=== PATIENT | male | born 1965 | race American Indian/Alaskan Native ===

== ENCOUNTER 2021-08-18 22:27 | Inpatient (IN) | payer SELFPAY ==
--- NOTE | 2021-08-19 11:22 | Emergency Department Report ---
Blank Doc - Documentation Documentation: 55-year-old male presents to the ED complaining, increased blood glucose and c occyx painx2 week . Patient states that he is homeless and unable to cook his any his meal. Patient states that has been evaluated at [place] over the last several weeks several times for coccyx pain and was told that nothing was wrong. Patient has obvious edema noted to the coccyx area with a possible pilonidal cyst. Patient has complaint of fever and chills. Patient is alert and oriented x3. Patient blood glucose 329. This initial assessment/diagnostic orders/clinical plan/treatment(s) is/are subject to change based on patients health status, clinical progression and re- assessment by fellow clinical providers in the ED. Further treatment and workup at subsequent clinical providers discretion. Patient/guardian urged not to elope from the ED as their condition may be serious if not clinically assessed and managed.
--- NOTE | 2021-08-19 12:01 | Emergency Department Report ---
- General Chief complaint: Pain General Stated complaint: TAILBONE PAIN Time Seen by Provider: 08/19/21 11:34 Source: patient Mode of arrival: Ambulatory Limitations: No Limitations - History of Present Illness Initial comments: Patient is a 55-year-old male with history of diabetes controlled with metformin presenting with complaint of pain and swelling along his gluteal cleft for the past few weeks. States he fell a few weeks ago landing on his bottom. He denies fever or chills. - Related Data Home Medications Medication Instructions Recorded Confirmed Last Taken Janumet 50-1,000 mg 1,000 mg PO DAILY 11/02/14 11/02/14 Unknown Lisinopril 12.5 mg PO DAILY 11/02/14 11/02/14 11/01/14 Simvastatin 20 mg PO DAILY 11/02/14 11/02/14 11/01/14 metFORMIN 500 mg PO BID 11/02/14 11/02/14 11/01/14 Allergies Allergy/AdvReac Type Severity Reaction Status Date / Time morphine Allergy Itching Verified 08/18/21 23:05 Abscess Boil HPI - HPI Chief Complaint: Pain General Stated Complaint: TAILBONE PAIN Time Seen by Provider: 08/19/21 11:34 Home Medications: Home Medications Medication Instructions Recorded Confirmed Last Taken Janumet 50-1,000 mg 1,000 mg PO DAILY 11/02/14 11/02/14 Unknown Lisinopril 12.5 mg PO DAILY 11/02/14 11/02/14 11/01/14 Simvastatin 20 mg PO DAILY 11/02/14 11/02/14 11/01/14 metFORMIN 500 mg PO BID 11/02/14 11/02/14 11/01/14 Allergies/Adverse Reactions: Allergies Allergy/AdvReac Type Severity Reaction Status Date / Time morphine Allergy Itching Verified 08/18/21 23:05 ED Review of Systems ROS: Stated complaint: TAILBONE PAIN Other details as noted in HPI Comment: All other systems reviewed and negative Constitutional: denies: chills, fever Respiratory: denies: cough, shortness of breath, wheezing Cardiovascular: denies: chest pain, palpitations Gastrointestinal: denies: abdominal pain, nausea, diarrhea Musculoskeletal: denies: back pain, joint swelling, arthralgia Skin: lesions (See HPI) Neurological: denies: headache, weakness, paresthesias Psychiatric: denies: anxiety, depression ED Past Medical Hx - Past Medical History Previous Medical History?: Yes Hx Hypertension: Yes Hx Diabetes: Yes Hx Psychiatric Treatment: No Additional medical history: HIGH CHOLESTEROL - Surgical History Past Surgical History?: No - Social History Smoking Status: Never Smoker Substance Use Type: None - Medications Home Medications: Home Medications Medication Instructions Recorded Confirmed Last Taken Type Janumet 50-1,000 mg 1,000 mg PO DAILY 11/02/14 11/02/14 Unknown History Lisinopril 12.5 mg PO DAILY 11/02/14 11/02/14 11/01/14 History Simvastatin 20 mg PO DAILY 11/02/14 11/02/14 11/01/14 History metFORMIN 500 mg PO BID 11/02/14 11/02/14 11/01/14 History ED Physical Exam - General Limitations: No Limitations General appearance: alert, in no apparent distress - Head Head exam: Present: atraumatic, normocephalic - Respiratory Respiratory exam: Present: normal lung sounds bilaterally. Absent: respiratory distress - Cardiovascular Cardiovascular Exam: Present: regular rate, normal rhythm, normal heart sounds - GI/Abdominal GI/Abdominal exam: Present: soft. Absent: distended, tenderness - Neurological Exam Neurological exam: Present: alert, oriented X3 - Psychiatric Psychiatric exam: Present: normal affect, normal mood - Skin Skin exam: Present: warm, dry, intact, other (Induration, swelling and tender ness to both upper gluteal clefts. Swelling and induration more significant on the left side.) ED Course Vital Signs 08/18/21 23:01 Temperature 99.0 F Pulse Rate 75 Respiratory 18 Rate Blood Pressure 124/55 [Left] O2 Sat by Pulse 98 Oximetry ED Medical Decision Making - Lab Data Result diagrams: 08/19/21 11:23 08/19/21 11:23 - Medical Decision Making Patient presenting with complaint of swelling and pain to the gluteal cleft for the past few weeks. He is a diabetic controlled on metformin. Physical exam findings consistent with likely gluteal abscess for cellulitis. Leukocytosis present at 22.7. CT abdomen pelvis shows findings consistent with perianal/perirectal cellulitis with possible perianal abscess. Discussed case with Dr. Hernandez who will consult. Patient started on IV clindamycin. Will admit to hospitalist. Critical care attestation.: If time is entered above; I have spent that time in minutes in the direct care of this critically ill patient, excluding procedure time. ED Disposition Clinical Impression: Perirectal cellulitis, Perianal cellulitis, Perianal abscess Disposition: 09 ADMITTED INPATIENT Is pt being admited?: Yes Condition: Stable
[2021-08-19] MEDS ORDERED: KETOROLAC 30 MG/1 ML INJ IV ONE (12:02)
[2021-08-19 12:17] LABS: Hematocrit 35.2 % (35.5-45.6); Hemoglobin 11.5 gm/dl (11.8-15.2); Mean Corpuscular HGB Conc 33 % (32-34); Mean Corpuscular Volume 74 fl (84-94); Platelet Count 247 K/mm3 (140-440); Red Blood Count 4.76 M/mm3 (3.65-5.03); Red Cell Distribution Width 15.9 % (13.2-15.2)
[2021-08-19 12:33] LABS: Alanine Aminotransferase 30 units/L (7-56); Albumin 4.4 g/dL (3.9-5); BUN/Creatinine Ratio 13; Blood Urea Nitrogen 14 mg/dL (9-20); Calcium 9.5 mg/dL (8.4-10.2); Hemolysis Index 13
--- NOTE | 2021-08-19 15:29 | Cat Scan Report ---
CT PELVIS WITH CONTRAST INDICATION / CLINICAL INFORMATION: Pilonidal cyst. TECHNIQUE: Axial CT images were obtained through the pelvis after 100 mL Omnipaque [address] scans at this location are performed using CT dose reduction for ALARA by means of automated ex posure control. COMPARISON: None available. FINDINGS: BOWEL: No abnormality of the visualized distal small small bowel, colon, and proximal rectum. There i s moderate distal rectal/perianal inflammation with possible left perianal fistula and abscess measur ing 1.5 1.2 x 2.0 cm as seen on axial series 3 image 107 induration and inflammation extends superior ly to the tip of the coccyx and mid gluteal cleft. This area of induration could represent developing phlegmon measuring about 3.5 x 2.0 x 3.0 cm best seen on axial series 3 image 97. APPENDIX: Not seen PERITONEUM: No free fluid. No free air. No fluid collection. LYMPH NODES: No significant adenopathy. ARTERIES: No significant abnormality. VEINS: No significant abnormality. URINARY BLADDER: No significant abnormality. REPRODUCTIVE ORGANS: No significant abnormality. ADDITIONAL FINDINGS: None. 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 IMPRESSION: 1. Moderate perirectal/perianal inflammation with possible left perianal fistula and abscess. Possibl e developing phlegmon just distal to the tip of the coccyx. 2. Patchy osteosclerosis and bilateral femoral head AVN which can be seen in the setting of sickle ce ll disease or other metabolic bone disease. Signer Name: Anant Macedo MD Signed: 08/19/2021 3:24 PM Workstation Name: [id number]
--- NOTE | 2021-08-19 17:28 | Consultation ---
History of Present Illness Consult date: 08/19/21 - History of present illness History of present illness: General surgery called to see 55-year-old diabetic male presented to the emergency room with a 2-week history of worsening coccyx pain. Patient says that he went to an outside hospital several times with no treatment. Patient says that he fell about 2 weeks ago and started having the pain. Patient had a CT scan today that showed an abscess collection with phlegmon in the perianal/gluteal area just inferior to the coccyx. Patient says that he has never had this before but has had an abscess drained on his buttock in the past. Past History Past Medical History: diabetes, hypertension, other (hx PE) Past Surgical History: Other (gluteal abscess ddrained) Medications and Allergies Allergies Allergy/AdvReac Type Severity Reaction Status Date / Time morphine Allergy Itching Verified 08/18/21 23:05 Home Medications Medication Instructions Recorded Confirmed Last Taken Type Janumet 50-1,000 mg 1,000 mg PO DAILY 11/02/14 11/02/14 Unknown History Lisinopril 12.5 mg PO DAILY 11/02/14 11/02/14 11/01/14 History Simvastatin 20 mg PO DAILY 11/02/14 11/02/14 11/01/14 History metFORMIN 500 mg PO BID 11/02/14 11/02/14 11/01/14 History Active Meds: Active Medications Clindamycin HCl (Cleocin 900 Mg/50 Ml) 900 mg in 50 mls @ 100 mls/hr IV PREOP NR; Protocol Stop: 08/19/21 20:00 Levofloxacin/Dextrose (Levaquin 750mg/150ml) 750 mg in 150 mls @ 100 mls/hr IV Q24H [facility]; Protocol Review of Systems All systems: negative - Constitutional no poor appetite - Gastrointestinal no abdominal pain, no nausea, no vomiting, no melena Exam Vital Signs Temp Pulse Resp BP Pulse Ox 99.0 F 75 18 124/55 98 08/18/21 23:01 08/18/21 23:01 08/18/21 23:01 08/18/21 23:01 08/18/21 23:01 - General physical appearance Positive: well developed, no distress, moderate pain - Eyes Positive: PERRL. Negative: icteric - ENT Positive: no hearing loss - Respiratory Positive: normal expansion, normal respiratory effort - Cardiovascular Heart Sounds: Present: S1 & S2 - Extremities Extremities: no ischemia - Abdomen Abdomen: Present: soft. Absent: tender - Integumentary other (Bilateral medial gluteal induration and tenderness. Fluctuant area mid cleft just under the coccyx. Unable to apply enough pressure to promote drainage.) Results - Labs 08/19/21 11:23 08/19/21 11:23 Abnormal lab results 08/18/21 08/19/21 08/19/21 Range/Units 22:57 11:23 11:23 WBC 22.7 H (4.5-11.0) K/mm3 Hgb 11.5 L (11.8-15.2) gm/dl Hct 35.2 L (35.5-45.6) % MCV 74 L (84-94) fl MCH 24 L (28-32) pg RDW 15.9 H (13.2-15.2) % Sodium 134 L (137-145) mmol/L Chloride 96.1 L (98-107) mmol/L Glucose 306 H (75-100) mg/dL POC Glucose 370 H (70-105) mg/dL Alkaline Phosphatase 159 H (35-129) units/L Diabetes panel 08/19/21 Range/Units 11:23 Sodium 134 L (137-145) mmol/L Potassium 4.5 (3.6-5.0) mmol/L Chloride 96.1 L (98-107) mmol/L Carbon Dioxide 22 (22-30) mmol/L BUN 14 (9-20) mg/dL Creatinine 1.1 (0.8-1.3) mg/dL Glucose 306 H (75-100) mg/dL Calcium 9.5 (8.4-10.2) mg/dL AST 18 (5-40) units/L ALT 30 (7-56) units/L Alkaline Phosphatase 159 H (35-129) units/L Total Protein 6.8 (6.3-8.2) g/dL Albumin 4.4 (3.9-5) g/dL Calcium panel 08/19/21 Range/Units 11:23 Calcium 9.5 (8.4-10.2) mg/dL Albumin 4.4 (3.9-5) g/dL Pituitary panel 08/19/21 Range/Units 11:23 Sodium 134 L (137-145) mmol/L Potassium 4.5 (3.6-5.0) mmol/L Chloride 96.1 L (98-107) mmol/L Carbon Dioxide 22 (22-30) mmol/L BUN 14 (9-20) mg/dL Creatinine 1.1 (0.8-1.3) mg/dL Glucose 306 H (75-100) mg/dL Calcium 9.5 (8.4-10.2) mg/dL Adrenal panel 08/19/21 Range/Units 11:23 Sodium 134 L (137-145) mmol/L Potassium 4.5 (3.6-5.0) mmol/L Chloride 96.1 L (98-107) mmol/L Carbon Dioxide 22 (22-30) mmol/L BUN 14 (9-20) mg/dL Creatinine 1.1 (0.8-1.3) mg/dL Glucose 306 H (75-100) mg/dL Calcium 9.5 (8.4-10.2) mg/dL Total Bilirubin 1.20 (0.1-1.2) mg/dL AST 18 (5-40) units/L ALT 30 (7-56) units/L Alkaline Phosphatase 159 H (35-129) units/L Total Protein 6.8 (6.3-8.2) g/dL Albumin 4.4 (3.9-5) g/dL - Imaging CT scan - abdomen: report reviewed, image reviewed CT scan - pelvis: report reviewed, image reviewed Assessment and Plan 55-year-old male with diabetes with gluteal/perianal abscess. Afebrile stable with leukocytosis. Will take for examination under anesthesia tomorrow with possible abscess drainage. Recommend tight glucose control and antibiotics. Patient have a diet tonight and n.p.o. after midnight. Discussed pathology and treatment plan with patient who is in agreement at this time.
[2021-08-19] MEDS ORDERED: ONDANSETRON 4 MG/2 ML INJ IV PRN (21:50)
[2021-08-19] MEDS ORDERED: MORPHINE 2 MG/1 ML INJ IV PRN (21:50)
[2021-08-19] MEDS ORDERED: METOCLOPRAMIDE 10 MG/2 ML INJ IV PRN (21:50)
--- NOTE | 2021-08-19 21:57 | History and Physical Report ---
History of Present Illness Date of examination: 08/19/21 Date of admission: 08/19/2021 Chief complaint: Pain in the perianal area for 2 weeks History of present illness: 55-year-old -[place] male with history of type 2 diabetes on metformin and hypertension comes in for pain and swelling around the perianal area for the past few weeks. Apparently fell couple of weeks ago on his buttocks. Denies fever or chills. Pain is 8 on a scale of 1-10. Intermittent in nature. No fever or chills. Pain is sharp in nature - Past Medical History --Previous Medical History?: Yes --Hypertension: Yes --Diabetes: Yes --Additional medical history: HIGH CHOLESTEROL - Surgical History --Past Surgical History?: No - Social History --Smoking Status: Never Smoker --Substance Use Type: None -Family history --Htn - Medications --Home Medications: Home Medications Medication Instructions Recorded Confirmed Last Taken Type Janumet 50-1,000 mg 1,000 mg PO DAILY 11/02/14 11/02/14 Unknown History Lisinopril 12.5 mg PO DAILY 11/02/14 11/02/14 11/01/14 History Simvastatin 20 mg PO DAILY 11/02/14 11/02/14 11/01/14 History metFORMIN 500 mg PO BID 11/02/14 11/02/14 11/01/14 History Review of Systems ROS: ---Stated complaint: Perianal pain ---Other details as noted in HPI --Comment: All other systems reviewed and negative --Constitutional: denies: chills, fever --Respiratory: denies: cough, shortness of breath, wheezing --Cardiovascular: denies: chest pain, palpitations --Gastrointestinal: denies: abdominal pain, nausea, diarrhea --Musculoskeletal: denies: back pain, joint swelling, arthralgia --Skin: lesions (See HPI) --Neurological: denies: headache, weakness, paresthesias --Psychiatric: denies: anxiety, depression Past History Past Medical History: diabetes, hypertension, other (hx PE) Past Surgical History: Other (gluteal abscess ddrained) Medications and Allergies Allergies Allergy/AdvReac Type Severity Reaction Status Date / Time morphine Allergy Itching Verified 08/18/21 23:05 Home Medications Medication Instructions Recorded Confirmed Last Taken Type Janumet 50-1,000 mg 1,000 mg PO DAILY 11/02/14 08/20/21 Unknown History Lisinopril 12.5 mg PO DAILY 11/02/14 08/20/21 11/01/14 History Simvastatin 20 mg PO DAILY 11/02/14 08/20/21 11/01/14 History metFORMIN 500 mg PO BID 11/02/14 08/20/21 11/01/14 History Active Meds: Active Medications Levofloxacin/Dextrose (Levaquin 750mg/150ml) 750 mg in 150 mls @ 100 mls/hr IV Q24H [facility]; Protocol Last Admin: 08/19/21 18:54 Dose: 100 mls/hr Exam - Constitutional Vitals: Temp Pulse Resp BP Pulse Ox 98.5 F 87 16 145/74 100 08/19/21 16:52 08/19/21 16:52 08/19/21 16:52 08/19/21 16:52 08/19/21 16:52 General appearance: Present: mild distress, well-nourished - EENT Eyes: Present: PERRL ENT: hearing intact, clear oral mucosa - Neck Neck: Present: supple, normal ROM - Respiratory Respiratory effort: normal Respiratory: bilateral: CTA - Cardiovascular Heart rate: 87 Rhythm: regular Heart Sounds: Present: S1 & S2. Absent: rub, click - Extremities Extremities: pulses symmetrical, No edema Peripheral Pulses: within normal limits - Abdominal General gastrointestinal: Present: soft, non-tender, non-distended, normal bowel sounds Male genitourinary: Present: tender (Tenderness and swelling in the perianal area. Fluctuant. Indurated.) - Integumentary Integumentary: Present: clear, warm, dry - Musculoskeletal Musculoskeletal: gait normal, strength equal bilaterally - Psychiatric Psychiatric: appropriate mood/affect, intact judgment & insight - Neurologic Neurologic: CNII-XII intact, moves all extremities Results - Labs CBC & Chem 7: 08/19/21 11:23 08/19/21 11:23 Labs: Laboratory Last Values WBC 22.7 K/mm3 (4.5-11.0) H 08/19/21 11:23 RBC 4.76 M/mm3 (3.65-5.03) 08/19/21 11:23 Hgb 11.5 gm/dl (11.8-15.2) L 08/19/21 11:23 Hct 35.2 % (35.5-45.6) L 08/19/21 11:23 MCV 74 fl (84-94) L 08/19/21 11:23 MCH 24 pg (28-32) L 08/19/21 11:23 MCHC 33 % (32-34) 08/19/21 11:23 RDW 15.9 % (13.2-15.2) H 08/19/21 11:23 Plt Count 247 K/mm3 (140-440) 08/19/21 11:23 Sodium 134 mmol/L (137-145) L 08/19/21 11:23 Potassium 4.5 mmol/L (3.6-5.0) 08/19/21 11:23 Chloride 96.1 mmol/L (98-107) L 08/19/21 11:23 Carbon Dioxide 22 mmol/L (22-30) 08/19/21 11:23 Anion Gap 20 mmol/L 08/19/21 11:23 BUN 14 mg/dL (9-20) 08/19/21 11:23 Creatinine 1.1 mg/dL (0.8-1.3) 08/19/21 11:23 Estimated GFR > 60 ml/min 08/19/21 11:23 BUN/Creatinine Ratio 13 % 08/19/21 11:23 Glucose 306 mg/dL (75-100) H 08/19/21 11:23 POC Glucose 370 mg/dL (70-105) H 08/18/21 22:57 Calcium 9.5 mg/dL (8.4-10.2) 08/19/21 11:23 Total Bilirubin 1.20 mg/dL (0.1-1.2) 08/19/21 11:23 AST 18 units/L (5-40) 08/19/21 11:23 ALT 30 units/L (7-56) 08/19/21 11:23 Alkaline Phosphatase 159 units/L (35-129) H 08/19/21 11:23 Total Protein 6.8 g/dL (6.3-8.2) 08/19/21 11:23 Albumin 4.4 g/dL (3.9-5) 08/19/21 11:23 Albumin/Globulin Ratio 1.8 % 08/19/21 11:23 Short CBC 08/19/21 Range/Units 11:23 WBC 22.7 H (4.5-11.0) K/mm3 Hgb 11.5 L (11.8-15.2) gm/dl Hct 35.2 L (35.5-45.6) % Plt Count 247 (140-440) K/mm3 BMP 08/19/21 11:23 Sodium 134 L Potassium 4.5 Chloride 96.1 L Carbon Dioxide 22 BUN 14 Creatinine 1.1 Glucose 306 H Calcium 9.5 Liver Function 08/19/21 Range/Units 11:23 Total Bilirubin 1.20 (0.1-1.2) mg/dL AST 18 (5-40) units/L ALT 30 (7-56) units/L Alkaline Phosphatase 159 H (35-129) units/L Albumin 4.4 (3.9-5) g/dL - Imaging and Cardiology CT scan - pelvis: report reviewed Imaging and Cardiology: Pelvis CT Moderate perirectal/perianal inflammation with possible left perianal fistula and abscess Patchy osteosclerosis and bilateral femoral head AVN which can be seen with a setting of sickle cell disease or other metabolic bone disease. Possible developing phlegmon just distal to the tip of the proximal Assessment and Plan Advance Directives: Yes (Full code) VTE prophylaxis?: Chemical Plan of care discussed with patient/family: Yes - Patient Problems (1) SIRS (systemic inflammatory response syndrome) Current Visit: Yes Status: Acute Plan to address problem: Patient has elevated white count (2) Perianal abscess Current Visit: Yes Status: Acute Plan to address problem: IV antibiotics initiated Surgery consult requested Possible I&D IV fluids (3) Hypertension Current Visit: Yes Status: Chronic Qualifiers: Hypertension type: primary hypertension Qualified Code(s): I10 - Essential (primary) hypertension Plan to address problem: Continue home antihypertensives and adjust medications as necessary (4) T2DM (type 2 diabetes mellitus) Current Visit: Yes Status: Chronic Qualifiers: Diabetes mellitus salvage determiner insulin use: without skilled nursing use Plan to address problem: Uncontrolled Hemoglobin A1c Coverage for now Lantus initiated Patient to be discharged on insulin regimen Will defer to primary team (5) DVT prophylaxis Current Visit: Yes Status: Acute Plan to address problem: On anticoagulation and GI prophylaxis (6) Advance care planning Current Visit: Yes Status: Acute Plan to address problem: Disease education conducted, care plan discussed, diagnosis discussed, prognosis discussed. Patient is full code. Patient acknowledges understanding and agreement with care plan. +30 minutes.
[2021-08-20] MEDS: FAMOTIDINE 20 MG TAB PO SCH ×3 (00:05→22:21)
[2021-08-20] MEDS: HEPARIN 5,000 UNIT/1 ML VIAL SUB-Q SCH ×3 (00:05→22:21)
[2021-08-20] MEDS: oxyCODONE /ACETAMINOPHEN 5-325MG TAB PO PRN ×2 (00:05→22:20)
[2021-08-20] MEDS: INSULIN LISPRO 100 UNIT/ML SUB-Q SCH ×2 (00:07→06:18)
[2021-08-20] MEDS: SODIUM CHLORIDE 0.9% 1000 ML 1,000 ML IV SCH ×2 (04:27→19:19)
[2021-08-20] MEDS: HYDROmorphone 0.5 MG/0.5 ML INJ IV PRN (04:33)
[2021-08-20] MEDS: ACETAMINOPHEN 325 MG TAB PO PRN ×2 (04:34→16:03)
[2021-08-20 06:33] LABS: Hematocrit 30.8 % (35.5-45.6); Hemoglobin 9.9 gm/dl (11.8-15.2); Mean Corpuscular HGB Conc 32 % (32-34); Mean Corpuscular Volume 74 fl (84-94); Platelet Count 236 K/mm3 (140-440); Red Blood Count 4.16 M/mm3 (3.65-5.03); Red Cell Distribution Width 16.4 % (13.2-15.2)
[2021-08-20 06:52] LABS: Alanine Aminotransferase 24 units/L (7-56); Albumin 3.5 g/dL (3.9-5); BUN/Creatinine Ratio 14; Blood Urea Nitrogen 15 mg/dL (9-20); Hemolysis Index 2
[2021-08-20] MEDS ORDERED: DEXTROSE 50% IN WATER (25GM) 50 ML SYRINGE IV PRN (07:30)
[2021-08-20] MEDS ORDERED: INSULIN GLARGINE 100 UNITS/ML SUB-Q SCH (08:00)
[2021-08-20] MEDS ORDERED: INSULIN NPH/REGULAR 70/30 INJ SUB-Q SCH ×3 (08:00→18:02)
[2021-08-20] MEDS: INSULIN REGULAR, HUMAN 100 UNITS/1 ML SUB-Q SCH ×4 (08:14→22:25)
[2021-08-20 09:15] LABS: Basophils % (Manual) 0 % (0.0-1.8); Eosinophils % (Manual) 0 % (0.0-4.3); Total Cells Counted 100
[2021-08-20 09:16] LABS: Hypochromasia 1+; Platelet Estimate Consistent w Auto; Target Cells Few
[2021-08-20] MEDS: LISINOPRIL 20 MG TAB PO SCH (09:32)
[2021-08-20] MEDS ORDERED: NON-FORMULARY EACH (Simvastatin 20 MG) PO SCH (10:00)
[2021-08-20] MEDS ORDERED: LISINOPRIL PO SCH (10:00)
--- NOTE | 2021-08-20 12:55 | Event Note ---
Date: 08/20/21 Pt seen. He signed consent for EUA and drainage of per-anal abscess later today.
--- NOTE | 2021-08-20 13:34 | Anesthesia Consultation ---
Anesthesia Consult and Med Hx Date of service: 08/20/21 - Airway Anesthetic Teeth Evaluation: Good ROM Head & Neck: Adequate Mental/Hyoid Distance: Adequate Mallampati Class: Class II Intubation Access Assessment: Probably Good - Pulmonary Exam CTA: Yes - Cardiac Exam Cardiac Exam: RRR - Pre-Operative Health Status ASA Pre-Surgery Classification: ASA3 Proposed Anesthetic Plan: General - Pulmonary Hx Smoking: Yes (half a pack for 25 years) Hx Asthma: No COPD: No Hx Pneumonia: No - Cardiovascular System Hx Hypertension: Yes (given medication this morning?) Hx Heart Attack/AMI: No Hx Cardia Arrhythmia: No - Central Nervous System Hx Neuromuscular Disorder: No Hx Psychiatric Problems: Yes (depression) - Gastrointestinal Hx Gastroesophageal Reflux Disease: No - Endocrine Hx Renal Disease: No Hx Liver Disease: No Hx Non-Insulin Dependent Diabetes: Yes (given insulin this morning; FBS 142) Hx Thyroid Disease: No - Hematic Hx Anemia: Yes Hx Sickle Cell Disease: Yes (SC trait) - Other Systems Hx Alcohol Use: Yes Hx Substance Use: Yes Hx Obesity: No - Additional Comments Anesthesia Medical History Comments: Patient taking pradaxa for h/o of PE 3 years ago. No h/o GAC. No FHAC.
--- NOTE | 2021-08-20 13:35 | Anesthesia Day of Surgery ---
Anesthesia Day of Surgery - Day of Surgery Patient Examined: Yes Patient H&P Reviewed: Yes Patient is NPO: Yes Baron's Test: N/A
--- NOTE | 2021-08-20 14:23 | Consultation ---
History of Present Illness - Reason for Consult Consult date: 08/20/21 - History of Present Illness 55-year-old man past medical history of type 2 diabetes, hypertension presented to hospital complaining of pain and swelling in the perianal region. This began a couple weeks prior to admission. He reports having a fall a few weeks prior. He is planned for EUA and drainage of perianal abscess later today. Febrile to 100.7 with a white count 22.1 currently on Levaquin. Imaging personally reviewed: Pelvis CT: Moderate perirectal inflammation with possible fistula and abscess Review of Systems: Bold if positive, otherwise negative General: fevers, chills, rigors HEENT: visual disturbance, diplopia, eye pain Respiratory: cough, sputum, hemoptysis, shortness of breath Cardiovascular: chest pain, syncope Gastrointestinal: nausea, vomiting, diarrhea, abdominal pain Genitourinary: dysuria, hematuria, flank pain Musculoskeletal: neck pain, back pain, joint pain, edema Neurologic: headaches, seizures Hematologic: easy bruising or bleeding Endocrine: night sweats, acute weight loss Skin: rash, jaundice, redness Psychiatric: suicidal, homicidal ideation Past History Past Medical History: diabetes, hypertension, other (hx PE) Past Surgical History: Other (gluteal abscess ddrained) Medications and Allergies Allergies Allergy/AdvReac Type Severity Reaction Status Date / Time morphine Allergy Itching Verified 08/18/21 23:05 Home Medications Medication Instructions Recorded Confirmed Last Taken Type Janumet 50-1,000 mg 1,000 mg PO DAILY 11/02/14 08/20/21 Unknown History Lisinopril 12.5 mg PO DAILY 11/02/14 08/20/21 11/01/14 History Simvastatin 20 mg PO DAILY 11/02/14 08/20/21 11/01/14 History metFORMIN 500 mg PO BID 11/02/14 08/20/21 11/01/14 History Active Meds: Active Medications Acetaminophen (Acetaminophen 325 Mg Tab) 650 mg PO Q4H PRN PRN Reason: Pain MILD(1-3)/Fever >100.5/LOCKE Last Admin: 08/20/21 04:34 Dose: 650 mg Dextrose (Dextrose 50% In Water (25gm) 50 Ml Syringe) 50 ml IV Q30MIN PRN; Protocol PRN Reason: Hypoglycemia Famotidine (Famotidine 20 Mg Tab) 20 mg PO BID [facility] Last Admin: 08/20/21 09:31 Dose: 20 mg Heparin Sodium (Porcine) (Heparin 5,000 Unit/1 Ml Vial) 5,000 unit SUB-Q Q12HR [facility] Last Admin: 08/20/21 09:46 Dose: 5,000 unit Hydromorphone HCl (Hydromorphone 0.5 Mg/0.5 Ml Inj) 0.5 mg IV Q3H PRN PRN Reason: Pain , Severe (7-10) Last Admin: 08/20/21 04:33 Dose: 0.5 mg Levofloxacin/Dextrose (Levaquin 750mg/150ml) 750 mg in 150 mls @ 100 mls/hr IV Q24H [facility]; Protocol Last Admin: 08/19/21 18:54 Dose: 100 mls/hr Sodium Chloride (Nacl 0.9% 1000 Ml) 1,000 mls @ 75 mls/hr IV DIRECT LATISHA Last Admin: 08/20/21 04:27 Dose: 75 mls/hr Insulin Human Isoph/Insulin Regular (Insulin Nph/Regular 70/30 Inj) 5 unit SUB- Q BIDDIAB [facility] Insulin Human Regular (Insulin Regular, Human 100 Units/1 Ml) 0 units SUB-Q ACHS [facility]; Protocol Last Admin: 08/20/21 12:30 Dose: Not Given Lisinopril (Lisinopril 20 Mg Tab) 20 mg PO QDAY [facility] Last Admin: 08/20/21 09:32 Dose: 20 mg Metoclopramide HCl (Metoclopramide 10 Mg/2 Ml Inj) 10 mg IV Q6H PRN PRN Reason: Nausea And Vomiting Ondansetron HCl (Ondansetron 4 Mg/2 Ml Inj) 4 mg IV Q8H PRN PRN Reason: Nausea And Vomiting Oxycodone/Acetaminophen (Oxycodone /Acetaminophen 5-325mg Tab) 1 tab PO Q6H PRN PRN Reason: Pain, Moderate (4-6) Last Admin: 08/20/21 00:05 Dose: 1 tab Pravastatin Sodium (Pravastatin 40 Mg Tab) 40 mg PO QHS [facility] Sodium Chloride (Sodium Chloride 0.9% 10 Ml Flush Syringe) 10 ml IV BID [facility] Last Admin: 08/20/21 09:32 Dose: 10 ml Sodium Chloride (Sodium Chloride 0.9% 10 Ml Flush Syringe) 10 ml IV PRN PRN PRN Reason: LINE FLUSH Physical Examination - Physical Exam Narrative exam: Physical Exam: Constitutional: Alert, cooperative. No acute distress Head, Ears, Nose: Normocephalic, atraumatic. External ears, nose normal Eyes: Conjunctivae/corneas clear. No icterus. No ptosis. Neck: Supple, no meningeal signs Oral: dentition fair, no thrush Cardiovascular: S1, S2 normal. Respiratory: Good air entry, clear to auscultation bilaterally GI: Soft, non-tender; bowel sounds normal. No peritoneal signs. Musculoskeletal: No pedal edema, no cyanosis. Skin: No rash or abscess Hem/Lymphatic: No palpable cervical or supraclavicular nodes. No lymphangitis Psych: Mood ok. Affect normal Neurological: Awake, alert, oriented. No gross abnormality - Constitutional Vitals: Vital Signs Temp Pulse Resp BP Pulse Ox 100.7 F H 84 20 148/72 100 08/20/21 05:20 08/20/21 09:32 08/20/21 05:20 08/20/21 09:32 08/20/21 05:20 Temperature -Last 24 Hours Temperature 100.7 F Temperature 100.7 F Temperature 98.7 F Temperature 98.5 F Results - Labs CBC & Chem 7: 08/20/21 06:09 08/20/21 06:09 Labs: Abnormal lab results 08/19/21 08/20/21 08/20/21 Range/Units 23:47 06:09 06:09 WBC 22.1 H (4.5-11.0) K/mm3 Hgb 9.9 L (11.8-15.2) gm/dl Hct 30.8 L (35.5-45.6) % MCV 74 L (84-94) fl MCH 24 L (28-32) pg RDW 16.4 H (13.2-15.2) % Seg Neuts % (Manual) 85.0 H (40.0-70.0) % Lymphocytes % (Manual) 6.0 L (13.4-35.0) % Monocytes % (Manual) 9.0 H (0.0-7.3) % Seg Neutrophils # Man 18.8 H (1.8-7.7) K/mm3 Monocytes # (Manual) 2.0 H (0.0-0.8) K/mm3 Sodium 135 L (137-145) mmol/L Glucose 190 H (75-100) mg/dL POC Glucose 538 H (70-105) mg/dL Alkaline Phosphatase 147 H (35-129) units/L Total Protein 5.5 L (6.3-8.2) g/dL Albumin 3.5 L (3.9-5) g/dL 08/20/21 08/20/21 Range/Units 06:10 12:25 WBC (4.5-11.0) K/mm3 Hgb (11.8-15.2) gm/dl Hct (35.5-45.6) % MCV (84-94) fl MCH (28-32) pg RDW (13.2-15.2) % Seg Neuts % (Manual) (40.0-70.0) % Lymphocytes % (Manual) (13.4-35.0) % Monocytes % (Manual) (0.0-7.3) % Seg Neutrophils # Man (1.8-7.7) K/mm3 Monocytes # (Manual) (0.0-0.8) K/mm3 Sodium (137-145) mmol/L Glucose (75-100) mg/dL POC Glucose 210 H 142 H (70-105) mg/dL Alkaline Phosphatase (35-129) units/L Total Protein (6.3-8.2) g/dL Albumin (3.9-5) g/dL Assessment and Plan Cultures: None A/P: 56 yo M PMhx obesity, Dm2 now with: #Acute sepsis: with fevers and leukocytosis. Secondary to josef-anal abscess. #Josef-anal abscess with fistulization: unclear etiology. Given fistula - possible undiagnosed Crohn's? #DM2: tight glycemic control for best outcomes. Recs: -Check blood cultures -Please obtain surgical cultures from abscess. -Changed Levaquin to Zosyn. Thank you for the consult, we will continue to follow. MD [facility] O: [phone] F: [phone]
[2021-08-20] MEDS ORDERED: ROCURONIUM 50 MG/5 ML INJ IV ONE (16:09)
[2021-08-20] MEDS ORDERED: LIDOCAINE MPF (2%) 20 MG/1 ML VIAL 5 ML ONE (16:09)
[2021-08-20] MEDS ORDERED: propofoL 200 MG/20 ML VIAL IV ONE (16:09)
[2021-08-20] MEDS ORDERED: LIDOCAINE (1%) 10 MG/1 ML VIAL 20 ML MDV ONE (16:20)
[2021-08-20] MEDS ORDERED: BUPIVACAINE/PF (0.5%) 5 MG/1 ML 30 ML VIAL INFILTRATI ONE ×2 (16:20→17:08)
[2021-08-20] MEDS ORDERED: HYDROmorphone 0.5 MG/0.5 ML INJ IV PRN ×3 (16:38→18:15)
[2021-08-20] MEDS ORDERED: ONDANSETRON 4 MG/2 ML INJ IV PRN ×2 (16:38→18:15)
[2021-08-20] MEDS ORDERED: MIDAZOLAM 2 MG/2 ML INJ ONE (16:39)
[2021-08-20] MEDS ORDERED: LIDOCAINE (1%) 10 MG/1 ML VIAL 20 ML MDV INFILTRATI ONE (17:09)
[2021-08-20] MEDS ORDERED: fentaNYL 100 MCG/2 ML INJ ONE (17:14)
[2021-08-20] MEDS ORDERED: GLYCOPYRROLATE 0.4 MG/2 ML INJ ONE (17:21)
[2021-08-20] MEDS ORDERED: NEOSTIGMINE 10MG/10 ML INJ MDV ONE (17:21)
[2021-08-20] MEDS ORDERED: ONDANSETRON 4 MG/2 ML INJ ONE (17:21)
[2021-08-20] MEDS ORDERED: KETOROLAC 30 MG/1 ML INJ ONE (17:21)
[2021-08-20] MEDS ORDERED: SUGAMMADEX SODIUM 200 MG/2 ML VIAL IV ONE (17:33)
--- NOTE | 2021-08-20 18:10 | Progress Note ---
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 Planning for I&D in OR today. Pending wound cultures. Discontinuing Levaquin and transitioning to Zosyn 4.5 g every 8 hours. Pending hemoglobin A1c for tighter glycemic control to assist with wound healing. Continue to monitor. #Non-insulin dependent type II diabetes mellitus - hemoglobin A1c: Pending - home regimen: Metformin 500 mg twice daily - current regimen: NPH 70/30 10 units twice daily - blood glucose goal 140-180 while inpatient - continue to monitor #Hypertension #Hyperlipidemia - home medications: Lisinopril dose unknown, simvastatin 20 mg daily - current medications: Lisinopril 20 mg daily, simvastatin 20 mg daily - SBP goal <160 and DBP goal <90 while inpatient - continue to monitor #Microcytic anemia Hemoglobin 9.9 Ordering ferritin and iron profile. Transfuse if hemoglobin <7 or patient become symptomatic. #Mild protein caloric malnutrition Albumin 3.5 Starting dietary supplementation #Obesity #Weight loss counseling #Exercise counseling - BMI 30.3 - Counseled patient on the importance of weight loss, incorporating exercise, and dietary changes (lean meats, fresh fruits and vegetables, and water intake). Patient expresses understanding. - Time: +15 min #Advanced care planning -Disease education conducted, care plan discussed, diagnoses discussed, prognosis discussed, and patient acknowledges understanding with care plan -Time: +30 min Disposition Plan: Continue medical management Total Time Spent with Patient (Minutes): 45 minutes History Interval history: No acute events overnight. Hospitalist Physical - Constitutional Vitals: Temp Pulse Resp BP Pulse Ox 101.7 F H 96 H 18 143/70 95 08/20/21 15:56 08/20/21 15:56 08/20/21 15:56 08/20/21 15:56 08/20/21 15:56 General appearance: Present: no acute distress, well-nourished, obese - EENT Eyes: Present: PERRL, EOM intact ENT: hearing intact, clear oral mucosa, dentition normal - Neck Neck: Present: supple, normal ROM - Respiratory Respiratory effort: normal Respiratory: bilateral: CTA - Cardiovascular Rhythm: regular Heart Sounds: Present: S1 & S2 - Extremities Extremities: no ischemia, pulses intact, pulses symmetrical, No edema, normal temperature, normal color, Full ROM Peripheral Pulses: within normal limits - Abdominal General gastrointestinal: soft, non-tender, non-distended, normal bowel sounds - Integumentary Integumentary: Present: clear, warm, dry - Psychiatric Psychiatric: appropriate mood/affect, intact judgment & insight, memory intact, cooperative - Neurologic Neurologic: CNII-XII intact, moves all extremities - Additional findings Additional findings: Perianal abscess with associated fistula - Allied Health Allied health notes reviewed: nursing Results - Labs CBC & Chem 7: 08/20/21 06:09 08/20/21 06:09 Labs: Laboratory Last Values WBC 22.1 K/mm3 (4.5-11.0) H 08/20/21 06:09 RBC 4.16 M/mm3 (3.65-5.03) 08/20/21 06:09 Hgb 9.9 gm/dl (11.8-15.2) L 08/20/21 06:09 Hct 30.8 % (35.5-45.6) L 08/20/21 06:09 MCV 74 fl (84-94) L 08/20/21 06:09 MCH 24 pg (28-32) L 08/20/21 06:09 MCHC 32 % (32-34) 08/20/21 06:09 RDW 16.4 % (13.2-15.2) H 08/20/21 06:09 Plt Count 236 K/mm3 (140-440) 08/20/21 06:09 Add Manual Diff Complete 08/20/21 06:09 Total Counted 100 08/20/21 06:09 Seg Neuts % (Manual) 85.0 % (40.0-70.0) H 08/20/21 06:09 Band Neutrophils % 0 % 08/20/21 06:09 Lymphocytes % (Manual) 6.0 % (13.4-35.0) L 08/20/21 06:09 Reactive Lymphs % (Man) 0 % 08/20/21 06:09 Monocytes % (Manual) 9.0 % (0.0-7.3) H 08/20/21 06:09 Eosinophils % (Manual) 0 % (0.0-4.3) 08/20/21 06:09 Basophils % (Manual) 0 % (0.0-1.8) 08/20/21 06:09 Metamyelocytes % 0 % 08/20/21 06:09 Myelocytes % 0 % 08/20/21 06:09 Promyelocytes % 0 % 08/20/21 06:09 Blast Cells % 0 % 08/20/21 06:09 Nucleated RBC % Not Reportable 08/20/21 06:09 Seg Neutrophils # Man 18.8 K/mm3 (1.8-7.7) H 08/20/21 06:09 Band Neutrophils # 0.0 K/mm3 08/20/21 06:09 Lymphocytes # (Manual) 1.3 K/mm3 (1.2-5.4) 08/20/21 06:09 Abs React Lymphs (Man) 0.0 K/mm3 08/20/21 06:09 Monocytes # (Manual) 2.0 K/mm3 (0.0-0.8) H 08/20/21 06:09 Eosinophils # (Manual) 0.0 K/mm3 (0.0-0.4) 08/20/21 06:09 Basophils # (Manual) 0.0 K/mm3 (0.0-0.1) 08/20/21 06:09 Metamyelocytes # 0.0 K/mm3 08/20/21 06:09 Myelocytes # 0.0 K/mm3 08/20/21 06:09 Promyelocytes # 0.0 K/mm3 08/20/21 06:09 Blast Cells # 0.0 K/mm3 08/20/21 06:09 WBC Morphology Not Reportable 08/20/21 06:09 Hypersegmented Neuts Not Reportable 08/20/21 06:09 Hyposegmented Neuts Not Reportable 08/20/21 06:09 Hypogranular Neuts Not Reportable 08/20/21 06:09 Smudge Cells Not Reportable 08/20/21 06:09 Toxic Granulation Not Reportable 08/20/21 06:09 Toxic Vacuolation Not Reportable 08/20/21 06:09 Dohle Bodies Not Reportable 08/20/21 06:09 Pelger-Huet Anomaly Not Reportable 08/20/21 06:09 Claudia Rods Not Reportable 08/20/21 06:09 Platelet Estimate Consistent w auto 08/20/21 06:09 Clumped Platelets Not Reportable 08/20/21 06:09 Plt Clumps, EDTA Not Reportable 08/20/21 06:09 Large Platelets Not Reportable 08/20/21 06:09 Giant Platelets Not Reportable 08/20/21 06:09 Platelet Satelliting Not Reportable 08/20/21 06:09 Plt Morphology Comment Not Reportable 08/20/21 06:09 RBC Morphology Not Reportable 08/20/21 06:09 Dimorphic RBCs Not Reportable 08/20/21 06:09 Polychromasia Not Reportable 08/20/21 06:09 Hypochromasia 1+ 08/20/21 06:09 Poikilocytosis Not Reportable 08/20/21 06:09 Anisocytosis Not Reportable 08/20/21 06:09 Microcytosis Not Reportable 08/20/21 06:09 Macrocytosis Not Reportable 08/20/21 06:09 Spherocytes Not Reportable 08/20/21 06:09 Pappenheimer Bodies Not Reportable 08/20/21 06:09 Sickle Cells Not Reportable 08/20/21 06:09 Target Cells Few 08/20/21 06:09 Tear Drop Cells Not Reportable 08/20/21 06:09 Ovalocytes Not Reportable 08/20/21 06:09 Helmet Cells Not Reportable 08/20/21 06:09 [place] Bodies Not Reportable 08/20/21 06:09 Strawberry Rings Not Reportable 08/20/21 06:09 Bettie Cells Not Reportable 08/20/21 06:09 Bite Cells Not Reportable 08/20/21 06:09 Crenated Cell Not Reportable 08/20/21 06:09 Elliptocytes Not Reportable 08/20/21 06:09 Acanthocytes (Spur) 1+ 08/20/21 06:09 Rouleaux Not Reportable 08/20/21 06:09 Hemoglobin C Crystals Not Reportable 08/20/21 06:09 Schistocytes Not Reportable 08/20/21 06:09 Malaria parasites Not Reportable 08/20/21 06:09 Mateus Bodies Not Reportable 08/20/21 06:09 Hem Pathologist Commnt No 08/20/21 06:09 Sodium 135 mmol/L (137-145) L 08/20/21 06:09 Potassium 4.2 mmol/L (3.6-5.0) 08/20/21 06:09 Chloride 98.9 mmol/L (98-107) 08/20/21 06:09 Carbon Dioxide 23 mmol/L (22-30) 08/20/21 06:09 Anion Gap 17 mmol/L 08/20/21 06:09 BUN 15 mg/dL (9-20) 08/20/21 06:09 Creatinine 1.1 mg/dL (0.8-1.3) 08/20/21 06:09 Estimated GFR > 60 ml/min 08/20/21 06:09 BUN/Creatinine Ratio 14 % 08/20/21 06:09 Glucose 190 mg/dL (75-100) H 08/20/21 06:09 POC Glucose 237 mg/dL (70-105) H 08/20/21 17:48 Calcium 9.0 mg/dL (8.4-10.2) 08/20/21 06:09 Total Bilirubin 0.80 mg/dL (0.1-1.2) 08/20/21 06:09 AST 14 units/L (5-40) 08/20/21 06:09 ALT 24 units/L (7-56) 08/20/21 06:09 Alkaline Phosphatase 147 units/L (35-129) H 08/20/21 06:09 Total Protein 5.5 g/dL (6.3-8.2) L 08/20/21 06:09 Albumin 3.5 g/dL (3.9-5) L 08/20/21 06:09 Albumin/Globulin Ratio 1.8 % 08/20/21 06:09 Ayon/IV: Voiding Method Toilet Active Medications - Current Medications Current Medications: Generic Name Dose Route Start Last Admin Trade Name Freq PRN Reason Stop Dose Admin Acetaminophen 650 mg 08/19/21 21:50 08/20/21 16:03 Acetaminophen 325 Mg Tab PO 650 mg Q4H PRN Administration Pain MILD(1-3)/Fever >100.5/LOCKE Dextrose 50 ml 08/20/21 07:30 Dextrose 50% In Water (25gm) 50 Ml Syringe IV Q30MIN PRN Hypoglycemia Protocol Famotidine 20 mg 08/19/21 22:00 08/20/21 09:31 Famotidine 20 Mg Tab PO 20 mg BID LATISHA Administration Heparin Sodium (Porcine) 5,000 unit 08/19/21 22:00 08/20/21 09:46 Heparin 5,000 Unit/1 Ml Vial SUB-Q 5,000 unit Q12HR LATISHA Administration Hydromorphone HCl 0.5 mg 08/19/21 21:50 08/20/21 04:33 Hydromorphone 0.5 Mg/0.5 Ml Inj IV 0.5 mg Q3H PRN Administration Pain , Severe (7-10) Sodium Chloride 1,000 mls @ 75 mls/hr 08/19/21 22:00 08/20/21 04:27 Nacl 0.9% 1000 Ml IV 75 mls/hr DIRECT LATISHA Administration Piperacillin Sod/Tazobactam Sod 4.5 gm in 100 mls @ 200 mls/hr 08/20/21 19:00 Zosyn/Ns 4.5gm/100ml IV Q8H [facility] Protocol Insulin Human Isoph/Insulin Regular 10 unit 08/20/21 18:02 Insulin Nph/Regular 70/30 Inj SUB-Q BIDDIAB [facility] Insulin Human Regular 0 units 08/20/21 08:00 08/20/21 17:16 Insulin Regular, Human 100 Units/1 Ml SUB-Q Not Given ACHS [facility] [place] Protocol Lisinopril 20 mg 08/20/21 10:00 08/20/21 09:32 Lisinopril 20 Mg Tab PO 20 mg QDAY LATISHA Administration Metoclopramide HCl 10 mg 08/19/21 21:50 Metoclopramide 10 Mg/2 Ml Inj IV Q6H PRN Nausea And Vomiting Ondansetron HCl 4 mg 08/19/21 21:50 Ondansetron 4 Mg/2 Ml Inj IV Q8H PRN Nausea And Vomiting Oxycodone/Acetaminophen 1 tab 08/19/21 21:50 08/20/21 00:05 Oxycodone /Acetaminophen 5-325mg Tab PO 1 tab Q6H PRN Administration Pain, Moderate (4-6) Pravastatin Sodium 40 mg 08/20/21 22:00 Pravastatin 40 Mg Tab PO QHS LATISHA Sodium Chloride 10 ml 08/19/21 22:00 08/20/21 09:32 Sodium Chloride 0.9% 10 Ml Flush Syringe IV 10 ml BID LATISHA Administration Sodium Chloride 10 ml 08/19/21 21:50 Sodium Chloride 0.9% 10 Ml Flush Syringe IV PRN PRN LINE FLUSH
--- NOTE | 2021-08-20 18:14 | Operative Report ---
Operative Report Operative Report: Date: August 20, 2021 Surgeon: Roxana Hernandez MD Procedure: Examination under anesthesia with incision and drainage of LLUVIA anal/rectal abscess Anesthesia: Preop diagnosis: Perianal/rectal abscess Postop diagnosis: Same as preop Indication: Patient a 56-year-old male who presented with a 2-week history of worsening coccyx and gluteal pain. Patient is CT scan which showed an abscess in the area inferior to the coccyx that was abutting the rectum and the anus. Patient was consented for this procedure. Details of procedure: Patient was brought to the OR suite laid in supine position. Bilateral lower extremity SCDs were placed. General anesthesia was induced via successful endotracheal tube intubation. Patient was then safely placed in prone position with all pressure points padded. A timeout was performed and an anal speculum was inserted into the anus and rectum. There were no fistulous tracts appreciated no areas of fluctuance through the rectum. There was noted to be areas of induration and fluctuance at the superior part of the gluteal cleft and at the apex where the coccyx is. An 18-gauge needle was used to localize a collection on the left superior gluteal fold. 11 blade scalpel was used to incise the most fluctuant area and there was immediate extravasation of purulent material. A hemostat and digital dissection was used to break up with any pockets. This was aspirated with suction. It was felt that this abscess collection tract in a horseshoe fashion superior over to the right gluteal fold with 2 additional incisions were made. one at the apex and one at the right superior gluteal fold. Both incisions were again dissected with a hemostat and finger dissection to break up any pockets and again purulent material was expressed. Cultures both anaerobic and aerobic were taken and sent to pathology. Once there was no further extravasation of purulent material the 3 incisions were irrigated with normal saline. These were then packed with iodoform gauze packing covered by gauze and ABD pad. Patient was then turned to the supine position extubated safely. He was taken to recovery stable condition. Specimens: Wound cultures Complications: None immediate Findings: A gluteal abscess that tracked down to the rectum that was shaved like a horseshoe traversing both the right and left superior gluteal folds.
--- NOTE | 2021-08-20 19:02 | Post Anesthesia Evaluation ---
- Post Anesthesia Evaluation Patient Participated: Yes Airway Patent: Yes Stable Respiratory Function: Yes Nausea/Vomiting: No Temp > 96.8F: Yes Pain Manageable: Yes Adequeate Hydration: Yes Anesthesia Complications: No Block Receding Appropriately: Not Applicable Patient on Ventilator: No
[2021-08-20] MEDS: PIPERACIL/TAZOBACTA 4.5/NS 100 4.5 GM/100 ML VIAL IV SCH (19:18)
[2021-08-20] MEDS: KETOROLAC 30 MG/1 ML INJ IV SCH (19:27)
[2021-08-20 21:51] LABS: Iron 22 ug/dL (49-181); Total Iron Binding Capacity 154 mcg/dL (250-450)
[2021-08-20] MEDS: PRAVASTATIN 40 MG TAB PO SCH (22:20)
[2021-08-21] MEDS: KETOROLAC 30 MG/1 ML INJ IV SCH ×2 (01:04→05:14)
[2021-08-21] MEDS: PIPERACIL/TAZOBACTA 4.5/NS 100 4.5 GM/100 ML VIAL IV SCH ×3 (03:29→18:03)
[2021-08-21] MEDS ORDERED: SODIUM CHLORIDE 0.9% 1000 ML 1,000 ML IV ONE (05:13)
[2021-08-21 05:51] LABS: Hematocrit 28.1 % (35.5-45.6); Hemoglobin 9.2 gm/dl (11.8-15.2); Mean Corpuscular HGB Conc 33 % (32-34); Mean Corpuscular Volume 74 fl (84-94); Platelet Count 217 K/mm3 (140-440); Red Blood Count 3.79 M/mm3 (3.65-5.03); Red Cell Distribution Width 16.7 % (13.2-15.2)
[2021-08-21 06:11] LABS: Calcium 8.5 mg/dL (8.4-10.2)
[2021-08-21] MEDS: INSULIN NPH/REGULAR 70/30 INJ SUB-Q SCH ×2 (08:26→17:52)
[2021-08-21] MEDS: INSULIN REGULAR, HUMAN 100 UNITS/1 ML SUB-Q SCH ×4 (08:27→22:37)
[2021-08-21 08:36] LABS: Basophils % (Manual) 0 % (0.0-1.8); Hypochromasia 1+; Platelet Estimate Consistent w Auto; Target Cells Few; Total Cells Counted 100
[2021-08-21] MEDS: HEPARIN 5,000 UNIT/1 ML VIAL SUB-Q SCH ×2 (10:06→22:38)
[2021-08-21] MEDS: LISINOPRIL 20 MG TAB PO SCH (10:06)
[2021-08-21] MEDS: FAMOTIDINE 20 MG TAB PO SCH ×2 (10:06→22:38)
--- NOTE | 2021-08-21 12:56 | Progress Note ---
Assessment and Plan Assessment and plan: #Perianal abscess with associated fistula status post I&D #Systemic infantile response syndrome #Leukocytosis WBC 22.1 -->22.5. Abscess with associated fistula visualized on CT abdomen and pelvis General surgery consulted; appreciate recs. Status post I&D in the OR. Pe nding wound cultures. Continue Zosyn 4.5 g every 8 hours. Factious disease consulted; appreciate r ecs. Continue to monitor. #ADRY Creatinine 1.8 (on presentation 1.1) Possibly secondary to infection/sepsis. Starting IV fluid resuscitation and encouraging increase p.o. intake. Renally dose meds and avoid nephrotoxic drugs. Holding on consulting nephrology. #Non-insulin dependent type II diabetes mellitus - hemoglobin A1c: 10.1 - home regimen: Metformin 500 mg twice daily - current regimen: NPH 70/30 15 units twice daily - blood glucose goal 140-180 while inpatient - continue to monitor #Hypertension #Hyperlipidemia - home medications: Lisinopril dose unknown, simvastatin 20 mg daily - current medications: Lisinopril 20 mg daily, simvastatin 20 mg daily - SBP goal <160 and DBP goal <90 while inpatient - continue to monitor #Microcytic anemia Hemoglobin 9.9 Iron 22, TIBC 154, ferritin 893. Transfuse if hemoglobin <7 or patient become symptomatic. Can initiate IV iron infusion once infection is better controlled. #Mild protein caloric malnutrition Albumin 3.5 Continue dietary supplementation #Obesity #Weight loss counseling #Exercise counseling - BMI 30.3 - Counseled patient on the importance of weight loss, incorporating exercise, and dietary changes (lean meats, fresh fruits and vegetables, and water intake). Patient expresses understanding. - Time: +15 min #Advanced care planning -Disease education conducted, care plan discussed, diagnoses discussed, prognosis discussed, and patient acknowledges understanding with care plan -Time: +30 min Disposition Plan: Continue medical management Total Time Spent with Patient (Minutes): 45 minutes History Interval history: Patient is status post irrigation and drainage of perianal abscess with associated fistula by general surgery in the OR yesterday. Patient tolerated the procedure well. Hospitalist Physical - Constitutional Vitals: Temp Pulse Resp BP Pulse Ox 98.2 F 72 18 112/63 98 08/21/21 07:35 08/21/21 07:36 08/21/21 07:35 08/21/21 10:06 08/21/21 10:46 General appearance: Present: no acute distress, well-nourished, obese - EENT Eyes: Present: PERRL, EOM intact ENT: hearing intact, clear oral mucosa, dentition normal - Neck Neck: Present: supple, normal ROM - Respiratory Respiratory effort: normal Respiratory: bilateral: CTA - Cardiovascular Rhythm: regular Heart Sounds: Present: S1 & S2 - Extremities Extremities: no ischemia, pulses intact, pulses symmetrical, No edema, normal temperature, normal color, Full ROM Peripheral Pulses: within normal limits - Abdominal General gastrointestinal: soft, non-tender, non-distended, normal bowel sounds - Integumentary Integumentary: Present: clear, warm, dry - Psychiatric Psychiatric: appropriate mood/affect, intact judgment & insight, memory intact, cooperative - Neurologic Neurologic: CNII-XII intact, moves all extremities - Allied Health Allied health notes reviewed: nursing Results - Labs CBC & Chem 7: 08/21/21 05:31 08/21/21 05:31 Labs: Laboratory Last Values WBC 22.5 K/mm3 (4.5-11.0) H 08/21/21 05:31 RBC 3.79 M/mm3 (3.65-5.03) 08/21/21 05:31 Hgb 9.2 gm/dl (11.8-15.2) L 08/21/21 05:31 Hct 28.1 % (35.5-45.6) L 08/21/21 05:31 MCV 74 fl (84-94) L 08/21/21 05:31 MCH 24 pg (28-32) L 08/21/21 05:31 MCHC 33 % (32-34) 08/21/21 05:31 RDW 16.7 % (13.2-15.2) H 08/21/21 05:31 Plt Count 217 K/mm3 (140-440) 08/21/21 05:31 Add Manual Diff Complete 08/21/21 05:31 Total Counted 100 08/21/21 05:31 Seg Neuts % (Manual) 84.0 % (40.0-70.0) H 08/21/21 05:31 Band Neutrophils % 0 % 08/21/21 05:31 Lymphocytes % (Manual) 11.0 % (13.4-35.0) L 08/21/21 05:31 Reactive Lymphs % (Man) 0 % 08/21/21 05:31 Monocytes % (Manual) 4.0 % (0.0-7.3) 08/21/21 05:31 Eosinophils % (Manual) 1.0 % (0.0-4.3) 08/21/21 05:31 Basophils % (Manual) 0 % (0.0-1.8) 08/21/21 05:31 Metamyelocytes % 0 % 08/21/21 05:31 Myelocytes % 0 % 08/21/21 05:31 Promyelocytes % 0 % 08/21/21 05:31 Blast Cells % 0 % 08/21/21 05:31 Nucleated RBC % Not Reportable 08/21/21 05:31 Seg Neutrophils # Man 18.9 K/mm3 (1.8-7.7) H 08/21/21 05:31 Band Neutrophils # 0.0 K/mm3 08/21/21 05:31 Lymphocytes # (Manual) 2.5 K/mm3 (1.2-5.4) 08/21/21 05:31 Abs React Lymphs (Man) 0.0 K/mm3 08/21/21 05:31 Monocytes # (Manual) 0.9 K/mm3 (0.0-0.8) H 08/21/21 05:31 Eosinophils # (Manual) 0.2 K/mm3 (0.0-0.4) 08/21/21 05:31 Basophils # (Manual) 0.0 K/mm3 (0.0-0.1) 08/21/21 05:31 Metamyelocytes # 0.0 K/mm3 08/21/21 05:31 Myelocytes # 0.0 K/mm3 08/21/21 05:31 Promyelocytes # 0.0 K/mm3 08/21/21 05:31 Blast Cells # 0.0 K/mm3 08/21/21 05:31 WBC Morphology Not Reportable 08/21/21 05:31 Hypersegmented Neuts Not Reportable 08/21/21 05:31 Hyposegmented Neuts Not Reportable 08/21/21 05:31 Hypogranular Neuts Not Reportable 08/21/21 05:31 Smudge Cells Not Reportable 08/21/21 05:31 Toxic Granulation Not Reportable 08/21/21 05:31 Toxic Vacuolation Not Reportable 08/21/21 05:31 Dohle Bodies Not Reportable 08/21/21 05:31 Pelger-Huet Anomaly Not Reportable 08/21/21 05:31 Claudia Rods Not Reportable 08/21/21 05:31 Platelet Estimate Consistent w auto 08/21/21 05:31 Clumped Platelets Not Reportable 08/21/21 05:31 Plt Clumps, EDTA Not Reportable 08/21/21 05:31 Large Platelets Not Reportable 08/21/21 05:31 Giant Platelets Not Reportable 08/21/21 05:31 Platelet Satelliting Not Reportable 08/21/21 05:31 Plt Morphology Comment Not Reportable 08/21/21 05:31 RBC Morphology Not Reportable 08/21/21 05:31 Dimorphic RBCs Not Reportable 08/21/21 05:31 Polychromasia Not Reportable 08/21/21 05:31 Hypochromasia 1+ 08/21/21 05:31 Poikilocytosis Not Reportable 08/21/21 05:31 Anisocytosis Not Reportable 08/21/21 05:31 Microcytosis Not Reportable 08/21/21 05:31 Macrocytosis Not Reportable 08/21/21 05:31 Spherocytes Not Reportable 08/21/21 05:31 Pappenheimer Bodies Not Reportable 08/21/21 05:31 Sickle Cells Not Reportable 08/21/21 05:31 Target Cells Few 08/21/21 05:31 Tear Drop Cells Not Reportable 08/21/21 05:31 Ovalocytes Not Reportable 08/21/21 05:31 Helmet Cells Not Reportable 08/21/21 05:31 Lockhart-Lanett Bodies Not Reportable 08/21/21 05:31 Corona Rings Not Reportable 08/21/21 05:31 Bettie Cells Not Reportable 08/21/21 05:31 Bite Cells Not Reportable 08/21/21 05:31 Crenated Cell Not Reportable 08/21/21 05:31 Elliptocytes Not Reportable 08/21/21 05:31 Acanthocytes (Spur) 1+ 08/21/21 05:31 Rouleaux Not Reportable 08/21/21 05:31 Hemoglobin C Crystals Not Reportable 08/21/21 05:31 Schistocytes Not Reportable 08/21/21 05:31 Malaria parasites Not Reportable 08/21/21 05:31 Mateus Bodies Not Reportable 08/21/21 05:31 Hem Pathologist Commnt No 08/21/21 05:31 Sodium 137 mmol/L (137-145) 08/21/21 05:31 Potassium 4.4 mmol/L (3.6-5.0) 08/21/21 05:31 Chloride 102.5 mmol/L (98-107) 08/21/21 05:31 Carbon Dioxide 22 mmol/L (22-30) 08/21/21 05:31 Anion Gap 17 mmol/L 08/21/21 05:31 BUN 20 mg/dL (9-20) 08/21/21 05:31 Creatinine 1.8 mg/dL (0.8-1.3) H D 08/21/21 05:31 Estimated GFR 48 ml/min 08/21/21 05:31 BUN/Creatinine Ratio 11 % 08/21/21 05:31 Glucose 350 mg/dL (75-100) H 08/21/21 05:31 POC Glucose 273 mg/dL (70-105) H 08/21/21 11:37 Hemoglobin A1c 10.1 % (4-6) H 08/21/21 05:31 Calcium 8.5 mg/dL (8.4-10.2) 08/21/21 05:31 Iron 22 ug/dL (49-181) L 08/20/21 20:39 TIBC 154 mcg/dL (250-450) L 08/20/21 20:39 Ferritin 893.1 ng/mL (30.0-300.0) H 08/20/21 20:39 Total Bilirubin 0.80 mg/dL (0.1-1.2) 08/20/21 06:09 AST 14 units/L (5-40) 08/20/21 06:09 ALT 24 units/L (7-56) 08/20/21 06:09 Alkaline Phosphatase 147 units/L (35-129) H 08/20/21 06:09 Total Protein 5.5 g/dL (6.3-8.2) L 08/20/21 06:09 Albumin 3.5 g/dL (3.9-5) L 08/20/21 06:09 Albumin/Globulin Ratio 1.8 % 08/20/21 06:09 Ayon/IV: Voiding Method Urinal Active Medications - Current Medications Current Medications: Generic Name Dose Route Start Last Admin Trade Name Freq PRN Reason Stop Dose Admin Acetaminophen 650 mg 08/19/21 21:50 08/20/21 16:03 Acetaminophen 325 Mg Tab PO 650 mg Q4H PRN Administration Pain MILD(1-3)/Fever >100.5/LOCKE Dextrose 50 ml 08/20/21 07:30 Dextrose 50% In Water (25gm) 50 Ml Syringe IV Q30MIN PRN Hypoglycemia Protocol Famotidine 20 mg 08/19/21 22:00 08/21/21 10:06 Famotidine 20 Mg Tab PO 20 mg BID LATISHA Administration Heparin Sodium (Porcine) 5,000 unit 08/19/21 22:00 08/21/21 10:06 Heparin 5,000 Unit/1 Ml Vial SUB-Q 5,000 unit Q12HR LATISHA Administration Hydromorphone HCl 0.5 mg 08/19/21 21:50 08/20/21 04:33 Hydromorphone 0.5 Mg/0.5 Ml Inj IV 0.5 mg Q3H PRN Administration Pain , Severe (7-10) Piperacillin Sod/Tazobactam Sod 4.5 gm in 100 mls @ 200 mls/hr 08/20/21 19:00 08/21/21 10:06 Zosyn/Ns 4.5gm/100ml IV 200 mls/hr Q8H LATISHA Administration Protocol Insulin Human Isoph/Insulin Regular 15 unit 08/21/21 08:15 08/21/21 08:26 Insulin Nph/Regular 70/30 Inj SUB-Q 15 unit BIDDIAB LATISHA Administration Insulin Human Regular 0 units 08/20/21 08:00 08/21/21 11:56 Insulin Regular, Human 100 Units/1 Ml SUB-Q 4 units ACHS LATISHA Administration Protocol Lisinopril 20 mg 08/20/21 10:00 08/21/21 10:06 Lisinopril 20 Mg Tab PO 20 mg QDAY LATISHA Administration Metoclopramide HCl 10 mg 08/19/21 21:50 Metoclopramide 10 Mg/2 Ml Inj IV Q6H PRN Nausea And Vomiting Ondansetron HCl 4 mg 08/19/21 21:50 Ondansetron 4 Mg/2 Ml Inj IV Q8H PRN Nausea And Vomiting Oxycodone/Acetaminophen 1 tab 08/19/21 21:50 08/20/21 22:20 Oxycodone /Acetaminophen 5-325mg Tab PO 1 tab Q6H PRN Administration Pain, Moderate (4-6) Pravastatin Sodium 40 mg 08/20/21 22:00 08/20/21 22:20 Pravastatin 40 Mg Tab PO 40 mg QHS LATISHA Administration Sodium Chloride 10 ml 08/19/21 22:00 08/21/21 10:07 Sodium Chloride 0.9% 10 Ml Flush Syringe IV 10 ml BID LATISHA Administration Sodium Chloride 10 ml 08/19/21 21:50 Sodium Chloride 0.9% 10 Ml Flush Syringe IV PRN PRN LINE FLUSH Nutrition/Malnutrition Assess - Dietary Evaluation Nutrition/Malnutrition Findings: Nutrition Notes Start: 08/20/21 18:03 Freq: Status: Active Protocol: Document 08/20/21 18:03 JUDITH (Rec: 08/20/21 18:20 JUDITH [id number]) Nutrition Notes 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 Current Diet Consistent Carbohydrates Diet (from D 08/20). Labs/Tests 08/20: Na 135, Glu 190. Pertinent Medications 08/20: Nutritionally unremarkable. 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 Weight Status Obese Subjective/Other Information RD consult for skin risk assessment. No reports available on Pt's PO intake of meals at the time , will assess at F/U. Pt is on Room Air, O2 saturation @ 99%, according to Physical Assessment History notes. Pt presents Surgical Wound on Perianal Area, according to Physical Assessment History notes. Procedure on 08/20: Incision and drainage of perianal abscess, well tolerated, according to Operative Report notes. Percent of energy/protein needs met: Prescribed Consistent Carbohydrates Diet provides for energy/protein needs (2, 061 Kcal/91 g) during LOS. Burn Absent Trauma Absent GI Symptoms None Food Allergy No Skin Integrity/Comment Surgical Wound on Perianal Area. Minimum of two criteria No Fluid Accumulation N/A Reduced Director Of Strategic Initiatives Strength N/A (non-severe) Protein-Calorie Malnutrition N\A #1 Nutrition Diagnosis No nutrition diagnosis at this time Comments: Will assess Pt's PO intake of meals at F/U. Is patient on ventilator? No Is Patient Ambulatory and/or Out of Bed Yes REE-([place]. Jeor-ambulatory/OOB) [ 2225.795 [id number]] Kcal/Kg value to use for calculation 20 Approximate Energy Requirements Using 1805 kcal/Kg Calculation Used for Recommendations Kcal/kg Additional Notes Protein: 0.8-1 g/Kg AdjBW; 64- 80 g/day. Fluids: 1 ml/Kcal, or as per MD. Nutrition Intervention Change Diet Order: Continue Consistent Carbohydrates Diet. Follow-Up By: 08/27/21 Additional Comments Continue monitoring food tolerance, %PO intake of meals , and BM.
--- NOTE | 2021-08-21 14:45 | Progress Note ---
Assessment and Plan Cultures: None A/P: 56 yo M PMhx obesity, Dm2 now with: #Acute sepsis: with fevers and leukocytosis. Secondary to josef-anal abscess. #Josef-anal abscess with fistulization: unclear etiology. Given fistula - possible undiagnosed Crohn's? #DM2: tight glycemic control for best outcomes. Recs: -Follow up blood/surgical cultures -Continue Zosyn. -Expect white count to decrease 1-2 days post-operatively. Thank you for the consult, we will continue to follow. Jonathan Gomez MD [facility] ([facility]) O: [phone] F: [phone] Subjective Date of service: 08/21/21 Interval history: Afebrile now, white count 22.5 which is approximately the same. Remains on Zosyn. Had debridement of perianal abscess yesterday, cultures were sent. N oted no fistulous tracts nor fluctuance through the rectum. Objective - Exam Narrative Exam: Physical Exam: Constitutional: Alert, cooperative. No acute distress Head, Ears, Nose: Normocephalic, atraumatic. External ears, nose normal Eyes: Conjunctivae/corneas clear. No icterus. No ptosis. Neck: Supple, no meningeal signs Oral: dentition fair, no thrush Cardiovascular: S1, S2 normal. Respiratory: Good air entry, clear to auscultation bilaterally GI: Soft, non-tender; bowel sounds normal. No peritoneal signs. Musculoskeletal: No pedal edema, no cyanosis. Skin: No rash or abscess Hem/Lymphatic: No palpable cervical or supraclavicular nodes. Psych: Mood ok. Affect normal Neurological: Awake, alert, oriented. No gross abnormality - Constitutional Vitals: Vital Signs Temp Pulse Resp BP Pulse Ox 98.2 F 72 18 112/63 98 08/21/21 07:35 08/21/21 07:36 08/21/21 07:35 08/21/21 10:06 08/21/21 10:46 Temperature -Last 24 Hours Temperature 98.2 F Temperature 97.2 F Temperature 97.9 F Temperature 98.5 F Temperature 101.7 F - Labs CBC & Chem 7: 08/21/21 05:31 08/21/21 05:31 Labs: Abnormal lab results 08/20/21 08/20/2108/20/22 Range/Units 16:22 17:48 20:39 WBC (4.5-11.0) K/mm3 Hgb (11.8-15.2) gm/dl Hct (35.5-45.6) % MCV (84-94) fl MCH (28-32) pg RDW (13.2-15.2) % Seg Neuts % (Manual) (40.0-70.0) % Lymphocytes % (Manual) (13.4-35.0) % Seg Neutrophils # Man (1.8-7.7) K/mm3 Monocytes # (Manual) (0.0-0.8) K/mm3 Creatinine (0.8-1.3) mg/dL Glucose (75-100) mg/dL POC Glucose 170 H 237 H (70-105) mg/dL Hemoglobin A1c (4-6) % Iron 22 L (49-181) ug/dL TIBC 154 L (250-450) mcg/dL Ferritin (30.0-300.0) ng/mL 08/20/21 08/20/21 08/21/21 Range/Units 20:39 22:19 05:31 WBC (4.5-11.0) K/mm3 Hgb (11.8-15.2) gm/dl Hct (35.5-45.6) % MCV (84-94) fl MCH (28-32) pg RDW (13.2-15.2) % Seg Neuts % (Manual) (40.0-70.0) % Lymphocytes % (Manual) (13.4-35.0) % Seg Neutrophils # Man (1.8-7.7) K/mm3 Monocytes # (Manual) (0.0-0.8) K/mm3 Creatinine (0.8-1.3) mg/dL Glucose (75-100) mg/dL POC Glucose 303 H (70-105) mg/dL Hemoglobin A1c 10.1 H (4-6) % Iron (49-181) ug/dL TIBC (250-450) mcg/dL Ferritin 893.1 H (30.0-300.0) ng/mL 08/21/21 08/21/21 08/21/21 Range/Units 05:31 05:31 07:58 WBC 22.5 H (4.5-11.0) K/mm3 Hgb 9.2 L (11.8-15.2) gm/dl Hct 28.1 L (35.5-45.6) % MCV 74 L (84-94) fl MCH 24 L (28-32) pg RDW 16.7 H (13.2-15.2) % Seg Neuts % (Manual) 84.0 H (40.0-70.0) % Lymphocytes % (Manual) 11.0 L (13.4-35.0) % Seg Neutrophils # Man 18.9 H (1.8-7.7) K/mm3 Monocytes # (Manual) 0.9 H (0.0-0.8) K/mm3 Creatinine 1.8 H D (0.8-1.3) mg/dL Glucose 350 H (75-100) mg/dL POC Glucose 357 H (70-105) mg/dL Hemoglobin A1c (4-6) % Iron (49-181) ug/dL TIBC (250-450) mcg/dL Ferritin (30.0-300.0) ng/mL 08/21/21 Range/Units 11:37 WBC (4.5-11.0) K/mm3 Hgb (11.8-15.2) gm/dl Hct (35.5-45.6) % MCV (84-94) fl MCH (28-32) pg RDW (13.2-15.2) % Seg Neuts % (Manual) (40.0-70.0) % Lymphocytes % (Manual) (13.4-35.0) % Seg Neutrophils # Man (1.8-7.7) K/mm3 Monocytes # (Manual) (0.0-0.8) K/mm3 Creatinine (0.8-1.3) mg/dL Glucose (75-100) mg/dL POC Glucose 273 H (70-105) mg/dL Hemoglobin A1c (4-6) % Iron (49-181) ug/dL TIBC (250-450) mcg/dL Ferritin (30.0-300.0) ng/mL
[2021-08-21] MEDS: HYDROmorphone 0.5 MG/0.5 ML INJ IV PRN (15:45)
--- NOTE | 2021-08-21 16:14 | Progress Note ---
Assessment and Plan Postop day #1 status post examination under anesthesia and incision and drainage of gluteal/perirectal abscess. Patient is now afebrile and stable with consistent leukocytosis. Subjectively feeling better with less pain. Appreciate infectious disease recommendations and will continue on antibiotics and change in necessary based on culture results. Patient did have sitz bath's twice daily and clean dressings to keep the area dry. No further surgical intervention is planned at this time. Subjective Date of service: 08/21/21 Narrative: No acute events overnight. Patient says that he feels much less pain and pressure in his buttock. Patient is tolerating diet. Objective Vital Signs - 12hr 08/21/21 08/21/21 08/21/21 05:09 07:35 07:36 Temperature 97.2 F L 98.2 F Pulse Rate 66 73 72 Respiratory 19 18 Rate Blood Pressure 83/45 112/68 O2 Sat by Pulse 99 98 99 Oximetry 08/21/21 08/21/21 10:06 10:46 Temperature Pulse Rate Respiratory Rate Blood Pressure 112/63 O2 Sat by Pulse 98 Oximetry - General physical appearance well developed, no distress, moderate pain - Eyes PERRL - ENT no hearing loss - Respiratory normal expansion, normal respiratory effort - Abdomen soft, not tender - Rectum other (Dressing and packing removed. Appropriately tender to palpation. No evidence of purulence or foul odor.) - Labs 08/21/21 05:31 08/21/21 05:31 Diabetes panel 08/21/21 08/21/21 Range/Units 05:31 05:31 Sodium 137 (137-145) mmol/L Potassium 4.4 (3.6-5.0) mmol/L Chloride 102.5 (98-107) mmol/L Carbon Dioxide 22 (22-30) mmol/L BUN 20 (9-20) mg/dL Creatinine 1.8 H D (0.8-1.3) mg/dL Glucose 350 H (75-100) mg/dL Hemoglobin A1c 10.1 H (4-6) % Calcium 8.5 (8.4-10.2) mg/dL Calcium panel 08/21/21 Range/Units 05:31 Calcium 8.5 (8.4-10.2) mg/dL Pituitary panel 08/21/21 Range/Units 05:31 Sodium 137 (137-145) mmol/L Potassium 4.4 (3.6-5.0) mmol/L Chloride 102.5 (98-107) mmol/L Carbon Dioxide 22 (22-30) mmol/L BUN 20 (9-20) mg/dL Creatinine 1.8 H D (0.8-1.3) mg/dL Glucose 350 H (75-100) mg/dL Calcium 8.5 (8.4-10.2) mg/dL Adrenal panel 08/21/21 Range/Units 05:31 Sodium 137 (137-145) mmol/L Potassium 4.4 (3.6-5.0) mmol/L Chloride 102.5 (98-107) mmol/L Carbon Dioxide 22 (22-30) mmol/L BUN 20 (9-20) mg/dL Creatinine 1.8 H D (0.8-1.3) mg/dL Glucose 350 H (75-100) mg/dL Calcium 8.5 (8.4-10.2) mg/dL
[2021-08-21] MEDS: ACETAMINOPHEN 325 MG TAB PO PRN (18:18)
[2021-08-21] MEDS: PRAVASTATIN 40 MG TAB PO SCH (22:37)
[2021-08-22] MEDS: PIPERACIL/TAZOBACTA 4.5/NS 100 4.5 GM/100 ML VIAL IV SCH ×3 (05:22→18:13)
[2021-08-22 05:51] LABS: Basophils # (Auto) 0.1 K/mm3 (0.0-0.1); Basophils % (Auto) 0.4 % (0.0-1.8); Eosinophils # (Auto) 0.2 K/mm3 (0.0-0.4); Eosinophils % (Auto) 1.3 % (0.0-4.3); Hematocrit 27.9 % (35.5-45.6); Lymphocytes # (Auto) 2.6 K/mm3 (1.2-5.4); Lymphocytes % (Auto) 17.4 % (13.4-35.0); Mean Corpuscular HGB Conc 32 % (32-34); Mean Corpuscular Volume 74 fl (84-94); Monocytes # (Auto) 1.3 K/mm3 (0.0-0.8); Monocytes % (Auto) 8.8 % (0.0-7.3); Platelet Count 260 K/mm3 (140-440); Red Blood Count 3.78 M/mm3 (3.65-5.03); Red Cell Distribution Width 16.7 % (13.2-15.2)
[2021-08-22 06:07] LABS: BUN/Creatinine Ratio 15; Blood Urea Nitrogen 17 mg/dL (9-20); Calcium 8.5 mg/dL (8.4-10.2); Hemolysis Index 0
--- NOTE | 2021-08-22 08:16 | Progress Note ---
Assessment and Plan Assessment and plan: #Perianal abscess with associated fistula status post I&D #Sepsis #Leukocytosisimproving WBC 22.1 -->22.5--> 14.7. Patient has become febrile to 101 F. Abscess with associated fistula visualized on CT abdomen and pelvis General surgery consulted; appreciate recs. Status post I&D in the OR. Wound cultures revealing beta-hemolytic strep. Continue Zosyn 4.5 g every 8 hours. Infectious disease consulted; appreciate recs. Will monitor patient for an additional 24 hours to ensure that fevers have resolved. Continue to monitor. #AKIresolved Creatinine 1.8--> 1.1 (on presentation 1.1) Possibly secondary to infection/sepsis. Starting IV fluid resuscitation and encouraging increase p.o. intake. Renally dose meds and avoid nephrotoxic drugs. Holding on consulting nephrology. #Non-insulin dependent type II diabetes mellitus - hemoglobin A1c: 10.1 - home regimen: Metformin 500 mg twice daily - current regimen: NPH 70/30 15 units twice daily - blood glucose goal 140-180 while inpatient - continue to monitor #Hypertension #Hyperlipidemia - home medications: Lisinopril dose unknown, simvastatin 20 mg daily - current medications: Lisinopril 20 mg daily, simvastatin 20 mg daily - SBP goal <160 and DBP goal <90 while inpatient - continue to monitor #Microcytic anemia Hemoglobin 9.9 Iron 22, TIBC 154, ferritin 893. Transfuse if hemoglobin <7 or patient become symptomatic. Can initiate IV iron infusion once infection is better controlled. #Mild protein caloric malnutrition Albumin 3.5 Continue dietary supplementation #Obesity #Weight loss counseling #Exercise counseling - BMI 30.3 - Counseled patient on the importance of weight loss, incorporating exercise, and dietary changes (lean meats, fresh fruits and vegetables, and water intake). Patient expresses understanding. - Time: +15 min #Advanced care planning -Disease education conducted, care plan discussed, diagnoses discussed, prognosis discussed, and patient acknowledges understanding with care plan -Time: +30 min #Discharge planning - Patient is pending resolution of fevers and final antibiotic regimen. - Case management has been made aware. - Discharge is tentatively 24-48 hours Disposition Plan: Continue medical management Total Time Spent with Patient (Minutes): 45 minutes History Interval history: Patient became febrile to 101 F last night. Hospitalist Physical - Constitutional Vitals: Temp Pulse Resp BP Pulse Ox 99.5 F 76 18 116/47 94 08/21/21 22:35 08/21/21 22:35 08/21/21 22:35 08/21/21 22:35 08/21/21 22:35 General appearance: Present: no acute distress, well-nourished, obese - EENT Eyes: Present: PERRL, EOM intact ENT: hearing intact, clear oral mucosa, dentition normal - Neck Neck: Present: supple, normal ROM - Respiratory Respiratory effort: normal Respiratory: bilateral: CTA - Cardiovascular Rhythm: regular Heart Sounds: Present: S1 & S2 - Extremities Extremities: no ischemia, pulses intact, pulses symmetrical, No edema, normal temperature, normal color, Full ROM Peripheral Pulses: within normal limits - Abdominal General gastrointestinal: soft, non-tender, non-distended, normal bowel sounds - Integumentary Integumentary: Present: clear, warm, dry, erythema (Associated erythema of perianal wound status post I&D) - Psychiatric Psychiatric: appropriate mood/affect, intact judgment & insight, memory intact, cooperative - Neurologic Neurologic: CNII-XII intact, moves all extremities - Allied Health Allied health notes reviewed: nursing Results - Labs CBC & Chem 7: 08/22/21 05:00 08/22/21 05:00 Labs: Laboratory Last Values WBC 14.7 K/mm3 (4.5-11.0) H 08/22/21 05:00 RBC 3.78 M/mm3 (3.65-5.03) 08/22/21 05:00 Hgb 9.0 gm/dl (11.8-15.2) L 08/22/21 05:00 Hct 27.9 % (35.5-45.6) L 08/22/21 05:00 MCV 74 fl (84-94) L 08/22/21 05:00 MCH 24 pg (28-32) L 08/22/21 05:00 MCHC 32 % (32-34) 08/22/21 05:00 RDW 16.7 % (13.2-15.2) H 08/22/21 05:00 Plt Count 260 K/mm3 (140-440) 08/22/21 05:00 Lymph % (Auto) 17.4 % (13.4-35.0) 08/22/21 05:00 Duval % (Auto) 8.8 % (0.0-7.3) H 08/22/21 05:00 Eos % (Auto) 1.3 % (0.0-4.3) 08/22/21 05:00 Baso % (Auto) 0.4 % (0.0-1.8) 08/22/21 05:00 Lymph # (Auto) 2.6 K/mm3 (1.2-5.4) 08/22/21 05:00 [place]val # (Auto) 1.3 K/mm3 (0.0-0.8) H 08/22/21 05:00 Eos # (Auto) 0.2 K/mm3 (0.0-0.4) 08/22/21 05:00 Baso # (Auto) 0.1 K/mm3 (0.0-0.1) 08/22/21 05:00 Add Manual Diff Complete 08/21/21 05:31 Total Counted 100 08/21/21 05:31 Seg Neutrophils % 72.1 % (40.0-70.0) H 08/22/21 05:00 Seg Neuts % (Manual) 84.0 % (40.0-70.0) H 08/21/21 05:31 Band Neutrophils % 0 % 08/21/21 05:31 Lymphocytes % (Manual) 11.0 % (13.4-35.0) L 08/21/21 05:31 Reactive Lymphs % (Man) 0 % 08/21/21 05:31 Monocytes % (Manual) 4.0 % (0.0-7.3) 08/21/21 05:31 Eosinophils % (Manual) 1.0 % (0.0-4.3) 08/21/21 05:31 Basophils % (Manual) 0 % (0.0-1.8) 08/21/21 05:31 Metamyelocytes % 0 % 08/21/21 05:31 Myelocytes % 0 % 08/21/21 05:31 Promyelocytes % 0 % 08/21/21 05:31 Blast Cells % 0 % 08/21/21 05:31 Nucleated RBC % Not Reportable 08/21/21 05:31 Seg Neutrophils # 10.6 K/mm3 (1.8-7.7) H 08/22/21 05:00 Seg Neutrophils # Man 18.9 K/mm3 (1.8-7.7) H 08/21/21 05:31 Band Neutrophils # 0.0 K/mm3 08/21/21 05:31 Lymphocytes # (Manual) 2.5 K/mm3 (1.2-5.4) 08/21/21 05:31 Abs React Lymphs (Man) 0.0 K/mm3 08/21/21 05:31 Monocytes # (Manual) 0.9 K/mm3 (0.0-0.8) H 08/21/21 05:31 Eosinophils # (Manual) 0.2 K/mm3 (0.0-0.4) 08/21/21 05:31 Basophils # (Manual) 0.0 K/mm3 (0.0-0.1) 08/21/21 05:31 Metamyelocytes # 0.0 K/mm3 08/21/21 05:31 Myelocytes # 0.0 K/mm3 08/21/21 05:31 Promyelocytes # 0.0 K/mm3 08/21/21 05:31 Blast Cells # 0.0 K/mm3 08/21/21 05:31 WBC Morphology Not Reportable 08/21/21 05:31 Hypersegmented Neuts Not Reportable 08/21/21 05:31 Hyposegmented Neuts Not Reportable 08/21/21 05:31 Hypogranular Neuts Not Reportable 08/21/21 05:31 Smudge Cells Not Reportable 08/21/21 05:31 Toxic Granulation Not Reportable 08/21/21 05:31 Toxic Vacuolation Not Reportable 08/21/21 05:31 Dohle Bodies Not Reportable 08/21/21 05:31 Pelger-Huet Anomaly Not Reportable 08/21/21 05:31 Claudia Rods Not Reportable 08/21/21 05:31 Platelet Estimate Consistent w auto 08/21/21 05:31 Clumped Platelets Not Reportable 08/21/21 05:31 Plt Clumps, EDTA Not Reportable 08/21/21 05:31 Large Platelets Not Reportable 08/21/21 05:31 Giant Platelets Not Reportable 08/21/21 05:31 Platelet Satelliting Not Reportable 08/21/21 05:31 Plt Morphology Comment Not Reportable 08/21/21 05:31 RBC Morphology Not Reportable 08/21/21 05:31 Dimorphic RBCs Not Reportable 08/21/21 05:31 Polychromasia Not Reportable 08/21/21 05:31 Hypochromasia 1+ 08/21/21 05:31 Poikilocytosis Not Reportable 08/21/21 05:31 Anisocytosis Not Reportable 08/21/21 05:31 Microcytosis Not Reportable 08/21/21 05:31 Macrocytosis Not Reportable 08/21/21 05:31 Spherocytes Not Reportable 08/21/21 05:31 Pappenheimer Bodies Not Reportable 08/21/21 05:31 Sickle Cells Not Reportable 08/21/21 05:31 Target Cells Few 08/21/21 05:31 Tear Drop Cells Not Reportable 08/21/21 05:31 Ovalocytes Not Reportable 08/21/21 05:31 Helmet Cells Not Reportable 08/21/21 05:31 Lockhart-Braymer Bodies Not Reportable 08/21/21 05:31 Hamel Rings Not Reportable 08/21/21 05:31 Bettie Cells Not Reportable 08/21/21 05:31 Bite Cells Not Reportable 08/21/21 05:31 Crenated Cell Not Reportable 08/21/21 05:31 Elliptocytes Not Reportable 08/21/21 05:31 Acanthocytes (Spur) 1+ 08/21/21 05:31 Rouleaux Not Reportable 08/21/21 05:31 Hemoglobin C Crystals Not Reportable 08/21/21 05:31 Schistocytes Not Reportable 08/21/21 05:31 Malaria parasites Not Reportable 08/21/21 05:31 Mateus Bodies Not Reportable 08/21/21 05:31 Hem Pathologist Commnt No 08/21/21 05:31 Sodium 136 mmol/L (137-145) L 08/22/21 05:00 Potassium 3.8 mmol/L (3.6-5.0) 08/22/21 05:00 Chloride 104.5 mmol/L (98-107) 08/22/21 05:00 Carbon Dioxide 20 mmol/L (22-30) L 08/22/21 05:00 Anion Gap 15 mmol/L 08/22/21 05:00 BUN 17 mg/dL (9-20) 08/22/21 05:00 Creatinine 1.1 mg/dL (0.8-1.3) 08/22/21 05:00 Estimated GFR > 60 ml/min 08/22/21 05:00 BUN/Creatinine Ratio 15 % 08/22/21 05:00 Glucose 189 mg/dL (75-100) H 08/22/21 05:00 POC Glucose 197 mg/dL (70-105) H 08/22/21 07:13 Hemoglobin A1c 10.1 % (4-6) H 08/21/21 05:31 Calcium 8.5 mg/dL (8.4-10.2) 08/22/21 05:00 Iron 22 ug/dL (49-181) L 08/20/21 20:39 TIBC 154 mcg/dL (250-450) L 08/20/21 20:39 Ferritin 893.1 ng/mL (30.0-300.0) H 08/20/21 20:39 Total Bilirubin 0.80 mg/dL (0.1-1.2) 08/20/21 06:09 AST 14 units/L (5-40) 08/20/21 06:09 ALT 24 units/L (7-56) 08/20/21 06:09 Alkaline Phosphatase 147 units/L (35-129) H 08/20/21 06:09 Total Protein 5.5 g/dL (6.3-8.2) L 08/20/21 06:09 Albumin 3.5 g/dL (3.9-5) L 08/20/21 06:09 Albumin/Globulin Ratio 1.8 % 08/20/21 06:09 Microbiology: Microbiology 08/21/21 16:00 Peripheral/Venous Blood Culture - Preliminary Culture in Progress 08/21/21 16:00 Peripheral/Venous Blood Culture - Preliminary Culture in Progress 08/20/21 Unknown Other (Please Specify:) - Rectal Surgical Culture - Final Beta Hemolytic Strep Group B Ayon/IV: Voiding Method Urinal Active Medications - Current Medications Current Medications: Generic Name Dose Route Start Last Admin Trade Name Freq PRN Reason Stop Dose Admin Acetaminophen 650 mg 08/19/21 21:50 08/21/21 18:18 Acetaminophen 325 Mg Tab PO 650 mg Q4H PRN Administration Pain MILD(1-3)/Fever >100.5/LOCKE Dextrose 50 ml 08/20/21 07:30 Dextrose 50% In Water (25gm) 50 Ml Syringe IV Q30MIN PRN Hypoglycemia Protocol Famotidine 20 mg 08/19/21 22:00 08/21/21 22:38 Famotidine 20 Mg Tab PO 20 mg BID LATISHA Administration Heparin Sodium (Porcine) 5,000 unit 08/19/21 22:00 08/21/21 22:38 Heparin 5,000 Unit/1 Ml Vial SUB-Q 5,000 unit Q12HR LATISHA Administration Hydromorphone HCl 0.5 mg 08/19/21 21:50 08/21/21 15:45 Hydromorphone 0.5 Mg/0.5 Ml Inj IV 0.5 mg Q3H PRN Administration Pain , Severe (7-10) Piperacillin Sod/Tazobactam Sod 4.5 gm in 100 mls @ 200 mls/hr 08/20/21 19:00 08/22/21 06:04 Zosyn/Ns 4.5gm/100ml IV Infused Q8H LATISHA Infusion Protocol Insulin Human Isoph/Insulin Regular 15 unit 08/21/21 08:15 08/21/21 17:52 Insulin Nph/Regular 70/30 Inj SUB-Q 15 unit BIDDIAB LATISHA Administration Insulin Human Regular 0 units 08/20/21 08:00 08/21/21 22:37 Insulin Regular, Human 100 Units/1 Ml SUB-Q 4 units ACHS LATISHA Administration Protocol Lisinopril 20 mg 08/20/21 10:00 08/21/21 10:06 Lisinopril 20 Mg Tab PO 20 mg QDAY LATISHA Administration Metoclopramide HCl 10 mg 08/19/21 21:50 Metoclopramide 10 Mg/2 Ml Inj IV Q6H PRN Nausea And Vomiting Ondansetron HCl 4 mg 08/19/21 21:50 Ondansetron 4 Mg/2 Ml Inj IV Q8H PRN Nausea And Vomiting Oxycodone/Acetaminophen 1 tab 08/19/21 21:50 08/20/21 22:20 Oxycodone /Acetaminophen 5-325mg Tab PO 1 tab Q6H PRN Administration Pain, Moderate (4-6) Pravastatin Sodium 40 mg 08/20/21 22:00 08/21/21 22:37 Pravastatin 40 Mg Tab PO 40 mg QHS LATISHA Administration Sodium Chloride 10 ml 08/19/21 22:00 08/21/21 22:39 Sodium Chloride 0.9% 10 Ml Flush Syringe IV 10 ml BID LATISHA Administration Sodium Chloride 10 ml 08/19/21 21:50 Sodium Chloride 0.9% 10 Ml Flush Syringe IV PRN PRN LINE FLUSH Nutrition/Malnutrition Assess - Dietary Evaluation Nutrition/Malnutrition Findings: Nutrition Notes Start: 08/20/21 18:03 Freq: Status: Active Protocol: Document 08/20/21 18:03 JUDITH (Rec: 08/20/21 18:20 JUDITH [email or web address]) Nutrition Notes 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 Current Diet Consistent Carbohydrates Diet (from D 08/20). Labs/Tests 08/20: Na 135, Glu 190. Pertinent Medications 08/20: Nutritionally unremarkable. Height 5 ft 8 in Weight 90.265 kg [place] Body Weight (kg) 70.00 BMI 30.2 Intake Prior to Admission Good Weight change and time frame Pt denies having loss body weight HEEL BUFFER. Weight Status Obese Subjective/Other Information RD consult for skin risk assessment. No reports available on Pt's PO intake of meals at the time , will assess at F/U. Pt is on Room Air, O2 saturation @ 99%, according to Physical Assessment History notes. Pt presents Surgical Wound on Perianal Area, according to Physical Assessment History notes. Procedure on 08/20: Incision and drainage of perianal abscess, well tolerated, according to Operative Report notes. Percent of energy/protein needs met: Prescribed Consistent Carbohydrates Diet provides for energy/protein needs (2, 061 Kcal/91 g) during LOS. Burn Absent Trauma Absent GI Symptoms None Food Allergy No Skin Integrity/Comment Surgical Wound on Perianal Area. Minimum of two criteria No Fluid Accumulation N/A Reduced Hydrogen Cell Tender Strength N/A (non-severe) Protein-Calorie Malnutrition N\A #1 Nutrition Diagnosis No nutrition diagnosis at this time Comments: Will assess Pt's PO intake of meals at F/U. Is patient on ventilator? No Is Patient Ambulatory and/or Out of Bed Yes REE-([place]-St. Jeor-ambulatory/OOB) [ 2225.795 [id number]] Kcal/Kg value to use for calculation 20 Approximate Energy Requirements Using 1805 kcal/Kg Calculation Used for Recommendations Kcal/kg Additional Notes Protein: 0.8-1 g/Kg AdjBW; 64- 80 g/day. Fluids: 1 ml/Kcal, or as per MD. Nutrition Intervention Change Diet Order: Continue Consistent Carbohydrates Diet. Follow-Up By: 08/27/21 Additional Comments Continue monitoring food tolerance, %PO intake of meals , and BM.
[2021-08-22] MEDS: INSULIN REGULAR, HUMAN 100 UNITS/1 ML SUB-Q SCH ×4 (09:20→22:02)
[2021-08-22] MEDS: FAMOTIDINE 20 MG TAB PO SCH ×2 (09:20→22:02)
[2021-08-22] MEDS: HEPARIN 5,000 UNIT/1 ML VIAL SUB-Q SCH ×2 (09:21→22:02)
[2021-08-22] MEDS: LISINOPRIL 20 MG TAB PO SCH (09:22)
[2021-08-22] MEDS: INSULIN NPH/REGULAR 70/30 INJ SUB-Q SCH ×2 (10:28→17:05)
[2021-08-22] MEDS: oxyCODONE /ACETAMINOPHEN 5-325MG TAB PO PRN (12:24)
--- NOTE | 2021-08-22 16:30 | Progress Note ---
Assessment and Plan 56 yo M s/p rectal examination under anesthesia and incision and drainage of complex gluteal/perirectal abscess, POD 2 Plan: 1. Continue abx per ID 2. Await final wound cultures 3. continue sitz baths TID and after every bowel movement 4. prn PO pain control 5. Recommend social science manager/case management consult - may need SANTY for wound m anagement. --Patient states he has no resources at home. He states his lights, water, and electricity has been turned off due to financial difficulties. He has no other friends or family members he can go to for help. He states he will not be able to do sitz baths at home. Discussed with Dr. Sellers Subjective Date of service: 08/22/21 Narrative: Pt seen and examined. Tm 101 yesterday evening. Afebrile since then. Mild pain in the area of incision. Patient states he has done a few sitz baths and there has been moderate drainage from the surgical wounds. Objective Vital Signs - 12hr 08/22/21 08/22/21 09:22 10:00 Pulse Rate 78 Blood Pressure 141/55 O2 Sat by Pulse 98 Oximetry - General physical appearance Narrative Exam: Gen; AAOx3. NAD CV: S1, S2+ Resp: even and unlabored Perirectal area: incisions are c/d/i with no active drainage. Dressing in place. - Labs 08/22/21 05:00 08/22/21 05:00 Diabetes panel 08/22/21 Range/Units 05:00 Sodium 136 L (137-145) mmol/L Potassium 3.8 (3.6-5.0) mmol/L Chloride 104.5 (98-107) mmol/L Carbon Dioxide 20 L (22-30) mmol/L BUN 17 (9-20) mg/dL Creatinine 1.1 (0.8-1.3) mg/dL Glucose 189 H (75-100) mg/dL Calcium 8.5 (8.4-10.2) mg/dL Calcium panel 08/22/21 Range/Units 05:00 Calcium 8.5 (8.4-10.2) mg/dL Pituitary panel 08/22/21 Range/Units 05:00 Sodium 136 L (137-145) mmol/L Potassium 3.8 (3.6-5.0) mmol/L Chloride 104.5 (98-107) mmol/L Carbon Dioxide 20 L (22-30) mmol/L BUN 17 (9-20) mg/dL Creatinine 1.1 (0.8-1.3) mg/dL Glucose 189 H (75-100) mg/dL Calcium 8.5 (8.4-10.2) mg/dL Adrenal panel 08/22/21 Range/Units 05:00 Sodium 136 L (137-145) mmol/L Potassium 3.8 (3.6-5.0) mmol/L Chloride 104.5 (98-107) mmol/L Carbon Dioxide 20 L (22-30) mmol/L BUN 17 (9-20) mg/dL Creatinine 1.1 (0.8-1.3) mg/dL Glucose 189 H (75-100) mg/dL Calcium 8.5 (8.4-10.2) mg/dL
[2021-08-22] MEDS: PRAVASTATIN 40 MG TAB PO SCH (22:02)
[2021-08-23] MEDS: PIPERACIL/TAZOBACTA 4.5/NS 100 4.5 GM/100 ML VIAL IV SCH ×3 (02:57→18:25)
[2021-08-23 06:37] LABS: Basophils # (Auto) 0.1 K/mm3 (0.0-0.1); Basophils % (Auto) 0.6 % (0.0-1.8); Eosinophils # (Auto) 0.4 K/mm3 (0.0-0.4); Eosinophils % (Auto) 4.1 % (0.0-4.3); Hematocrit 29.6 % (35.5-45.6); Hemoglobin 9.6 gm/dl (11.8-15.2); Lymphocytes # (Auto) 2.8 K/mm3 (1.2-5.4); Lymphocytes % (Auto) 26.6 % (13.4-35.0); Mean Corpuscular HGB Conc 33 % (32-34); Mean Corpuscular Volume 74 fl (84-94); Monocytes # (Auto) 1.3 K/mm3 (0.0-0.8); Monocytes % (Auto) 12.5 % (0.0-7.3); Platelet Count 340 K/mm3 (140-440); Red Blood Count 4.01 M/mm3 (3.65-5.03); Red Cell Distribution Width 16.7 % (13.2-15.2)
[2021-08-23 06:55] LABS: BUN/Creatinine Ratio 10; Blood Urea Nitrogen 11 mg/dL (9-20); Calcium 9.2 mg/dL (8.4-10.2); Hemolysis Index 0
[2021-08-23 08:29] LABS: BUN/Creatinine Ratio 11; Blood Urea Nitrogen 11 mg/dL (9-20); Calcium 8.8 mg/dL (8.4-10.2); Hemolysis Index 0
[2021-08-23] MEDS: INSULIN NPH/REGULAR 70/30 INJ SUB-Q SCH ×2 (09:12→17:30)
[2021-08-23] MEDS: HEPARIN 5,000 UNIT/1 ML VIAL SUB-Q SCH ×2 (09:12→22:15)
[2021-08-23] MEDS: FAMOTIDINE 20 MG TAB PO SCH ×2 (09:12→22:14)
[2021-08-23] MEDS: INSULIN REGULAR, HUMAN 100 UNITS/1 ML SUB-Q SCH ×4 (09:12→22:14)
[2021-08-23] MEDS: LISINOPRIL 20 MG TAB PO SCH (09:13)
--- NOTE | 2021-08-23 11:11 | Progress Note ---
Assessment and Plan Assessment and plan: #Perianal abscess with associated fistula status post I&D #Sepsisresolved #Leukocytosisresolved WBC 22.1 -->22.5--> 14.7--> 10.6. Patient has become febrile to 101 F. Abscess with associated fistula visualized on CT abdomen and pelvis General surgery consulted; appreciate recs. Status post I&D in the OR. Wound cultures revealing beta-hemolytic strep. Continue Zosyn 4.5 g every 8 hours. Infectious disease consulted; appreciate recs. Will monitor patient for an additional 24 hours to ensure that fevers have resolved. Continue to monitor. #AKIresolved Creatinine 1.8--> 1.1 (on presentation 1.1) Possibly secondary to infection/sepsis. Starting IV fluid resuscitation and encouraging increase p.o. intake. Renally dose meds and avoid nephrotoxic drugs. Holding on consulting nephrology. #Non-insulin dependent type II diabetes mellitus - hemoglobin A1c: 10.1 - home regimen: Metformin 500 mg twice daily - current regimen: NPH 70/30 20 units twice daily + moderate SSI - blood glucose goal 140-180 while inpatient - continue to monitor #Hypertension #Hyperlipidemia - home medications: Lisinopril dose unknown, simvastatin 20 mg daily - current medications: Lisinopril 20 mg daily, simvastatin 20 mg daily - SBP goal <160 and DBP goal <90 while inpatient - continue to monitor #Microcytic anemia Hemoglobin 9.9 Iron 22, TIBC 154, ferritin 893. Transfuse if hemoglobin <7 or patient become symptomatic. Ordering IV infusion x1. #Mild protein caloric malnutrition Albumin 3.5 Continue dietary supplementation #Obesity #Weight loss counseling #Exercise counseling - BMI 30.3 - Counseled patient on the importance of weight loss, incorporating exercise, and dietary changes (lean meats, fresh fruits and vegetables, and water intake). Patient expresses understanding. - Time: +15 min #Advanced care planning -Disease education conducted, care plan discussed, diagnoses discussed, prognosis discussed, and patient acknowledges understanding with care plan -Time: +30 min #Discharge planning - Patient is pending final antibiotic regimen and final dispo with assistance from case management. - Case management has been made aware. - Discharge is tentatively 24 hours. Disposition Plan: Continue medical management Total Time Spent with Patient (Minutes): 45 minutes History Interval history: No acute events overnight. Hospitalist Physical - Constitutional Vitals: Temp Pulse Resp BP Pulse Ox 99.0 F 75 18 175/79 96 08/23/21 10:53 08/23/21 10:53 08/23/21 10:53 08/23/21 10:53 08/23/21 10:53 General appearance: Present: no acute distress, well-nourished, obese - EENT Eyes: Present: PERRL, EOM intact ENT: hearing intact, clear oral mucosa, dentition normal - Neck Neck: Present: supple, normal ROM - Respiratory Respiratory effort: normal Respiratory: bilateral: CTA - Cardiovascular Rhythm: regular Heart Sounds: Present: S1 & S2 - Extremities Extremities: no ischemia, pulses intact, pulses symmetrical, No edema, normal temperature, normal color, Full ROM Peripheral Pulses: within normal limits - Abdominal General gastrointestinal: soft, non-tender, non-distended, normal bowel sounds - Integumentary Integumentary: Present: clear, warm, dry - Psychiatric Psychiatric: appropriate mood/affect, intact judgment & insight, memory intact, cooperative - Neurologic Neurologic: CNII-XII intact, moves all extremities - Allied Health Allied health notes reviewed: nursing Results - Labs CBC & Chem 7: 08/23/21 05:54 08/23/21 07:37 Labs: Laboratory Last Values WBC 10.6 K/mm3 (4.5-11.0) 08/23/21 05:54 RBC 4.01 M/mm3 (3.65-5.03) 08/23/21 05:54 Hgb 9.6 gm/dl (11.8-15.2) L 08/23/21 05:54 Hct 29.6 % (35.5-45.6) L 08/23/21 05:54 MCV 74 fl (84-94) L 08/23/21 05:54 MCH 24 pg (28-32) L 08/23/21 05:54 MCHC 33 % (32-34) 08/23/21 05:54 RDW 16.7 % (13.2-15.2) H 08/23/21 05:54 Plt Count 340 K/mm3 (140-440) 08/23/21 05:54 Lymph % (Auto) 26.6 % (13.4-35.0) 08/23/21 05:54 Larue % (Auto) 12.5 % (0.0-7.3) H 08/23/21 05:54 Eos % (Auto) 4.1 % (0.0-4.3) 08/23/21 05:54 Baso % (Auto) 0.6 % (0.0-1.8) 08/23/21 05:54 Lymph # (Auto) 2.8 K/mm3 (1.2-5.4) 08/23/21 05:54 Larue # (Auto) 1.3 K/mm3 (0.0-0.8) H 08/23/21 05:54 Eos # (Auto) 0.4 K/mm3 (0.0-0.4) 08/23/21 05:54 Baso # (Auto) 0.1 K/mm3 (0.0-0.1) 08/23/21 05:54 Add Manual Diff Complete 08/21/21 05:31 Total Counted 100 08/21/21 05:31 Seg Neutrophils % 56.2 % (40.0-70.0) 08/23/21 05:54 Seg Neuts % (Manual) 84.0 % (40.0-70.0) H 08/21/21 05:31 Band Neutrophils % 0 % 08/21/21 05:31 Lymphocytes % (Manual) 11.0 % (13.4-35.0) L 08/21/21 05:31 Reactive Lymphs % (Man) 0 % 08/21/21 05:31 Monocytes % (Manual) 4.0 % (0.0-7.3) 08/21/21 05:31 Eosinophils % (Manual) 1.0 % (0.0-4.3) 08/21/21 05:31 Basophils % (Manual) 0 % (0.0-1.8) 08/21/21 05:31 Metamyelocytes % 0 % 08/21/21 05:31 Myelocytes % 0 % 08/21/21 05:31 Promyelocytes % 0 % 08/21/21 05:31 Blast Cells % 0 % 08/21/21 05:31 Nucleated RBC % Not Reportable 08/21/21 05:31 Seg Neutrophils # 6.0 K/mm3 (1.8-7.7) 08/23/21 05:54 Seg Neutrophils # Man 18.9 K/mm3 (1.8-7.7) H 08/21/21 05:31 Band Neutrophils # 0.0 K/mm3 08/21/21 05:31 Lymphocytes # (Manual) 2.5 K/mm3 (1.2-5.4) 08/21/21 05:31 Abs React Lymphs (Man) 0.0 K/mm3 08/21/21 05:31 Monocytes # (Manual) 0.9 K/mm3 (0.0-0.8) H 08/21/21 05:31 Eosinophils # (Manual) 0.2 K/mm3 (0.0-0.4) 08/21/21 05:31 Basophils # (Manual) 0.0 K/mm3 (0.0-0.1) 08/21/21 05:31 Metamyelocytes # 0.0 K/mm3 08/21/21 05:31 Myelocytes # 0.0 K/mm3 08/21/21 05:31 Promyelocytes # 0.0 K/mm3 08/21/21 05:31 Blast Cells # 0.0 K/mm3 08/21/21 05:31 WBC Morphology Not Reportable 08/21/21 05:31 Hypersegmented Neuts Not Reportable 08/21/21 05:31 Hyposegmented Neuts Not Reportable 08/21/21 05:31 Hypogranular Neuts Not Reportable 08/21/21 05:31 Smudge Cells Not Reportable 08/21/21 05:31 Toxic Granulation Not Reportable 08/21/21 05:31 Toxic Vacuolation Not Reportable 08/21/21 05:31 Dohle Bodies Not Reportable 08/21/21 05:31 Pelger-Huet Anomaly Not Reportable 08/21/21 05:31 Claudia Rods Not Reportable 08/21/21 05:31 Platelet Estimate Consistent w auto 08/21/21 05:31 Clumped Platelets Not Reportable 08/21/21 05:31 Plt Clumps, EDTA Not Reportable 08/21/21 05:31 Large Platelets Not Reportable 08/21/21 05:31 Giant Platelets Not Reportable 08/21/21 05:31 Platelet Satelliting Not Reportable 08/21/21 05:31 Plt Morphology Comment Not Reportable 08/21/21 05:31 RBC Morphology Not Reportable 08/21/21 05:31 Dimorphic RBCs Not Reportable 08/21/21 05:31 Polychromasia Not Reportable 08/21/21 05:31 Hypochromasia 1+ 08/21/21 05:31 Poikilocytosis Not Reportable 08/21/21 05:31 Anisocytosis Not Reportable 08/21/21 05:31 Microcytosis Not Reportable 08/21/21 05:31 Macrocytosis Not Reportable 08/21/21 05:31 Spherocytes Not Reportable 08/21/21 05:31 Pappenheimer Bodies Not Reportable 08/21/21 05:31 Sickle Cells Not Reportable 08/21/21 05:31 Target Cells Few 08/21/21 05:31 Tear Drop Cells Not Reportable 08/21/21 05:31 Ovalocytes Not Reportable 08/21/21 05:31 Helmet Cells Not Reportable 08/21/21 05:31 Lockhart-Imperial Bodies Not Reportable 08/21/21 05:31 Dorsey Rings Not Reportable 08/21/21 05:31 Bettie Cells Not Reportable 08/21/21 05:31 Bite Cells Not Reportable 08/21/21 05:31 Crenated Cell Not Reportable 08/21/21 05:31 Elliptocytes Not Reportable 08/21/21 05:31 Acanthocytes (Spur) 1+ 08/21/21 05:31 Rouleaux Not Reportable 08/21/21 05:31 Hemoglobin C Crystals Not Reportable 08/21/21 05:31 Schistocytes Not Reportable 08/21/21 05:31 Malaria parasites Not Reportable 08/21/21 05:31 Mateus Bodies Not Reportable 08/21/21 05:31 Hem Pathologist Commnt No 08/21/21 05:31 Sodium 139 mmol/L (137-145) D 08/23/21 07:37 Potassium 4.2 mmol/L (3.6-5.0) 08/23/21 07:37 Chloride 107.5 mmol/L (98-107) H 08/23/21 07:37 Carbon Dioxide 21 mmol/L (22-30) L 08/23/21 07:37 Anion Gap 15 mmol/L 08/23/21 07:37 BUN 11 mg/dL (9-20) 08/23/21 07:37 Creatinine 1.0 mg/dL (0.8-1.3) 08/23/21 07:37 Estimated GFR > 60 ml/min 08/23/21 07:37 BUN/Creatinine Ratio 11 % 08/23/21 07:37 Glucose 243 mg/dL (75-100) H 08/23/21 07:37 POC Glucose 239 mg/dL (70-105) H 08/23/21 07:23 Hemoglobin A1c 10.1 % (4-6) H 08/21/21 05:31 Calcium 8.8 mg/dL (8.4-10.2) 08/23/21 07:37 Iron 22 ug/dL (49-181) L 08/20/21 20:39 TIBC 154 mcg/dL (250-450) L 08/20/21 20:39 Ferritin 893.1 ng/mL (30.0-300.0) H 08/20/21 20:39 Total Bilirubin 0.80 mg/dL (0.1-1.2) 08/20/21 06:09 AST 14 units/L (5-40) 08/20/21 06:09 ALT 24 units/L (7-56) 08/20/21 06:09 Alkaline Phosphatase 147 units/L (35-129) H 08/20/21 06:09 Total Protein 5.5 g/dL (6.3-8.2) L 08/20/21 06:09 Albumin 3.5 g/dL (3.9-5) L 08/20/21 06:09 Albumin/Globulin Ratio 1.8 % 08/20/21 06:09 Microbiology: Microbiology 08/21/21 16:00 Peripheral/Venous Blood Culture - Preliminary NO GROWTH AFTER 24 HOURS 08/21/21 16:00 Peripheral/Venous Blood Culture - Preliminary NO GROWTH AFTER 24 HOURS Ayon/IV: Voiding Method Urinal Active Medications - Current Medications Current Medications: Generic Name Dose Route Start Last Admin Trade Name Freq PRN Reason Stop Dose Admin Acetaminophen 650 mg 08/19/21 21:50 08/21/21 18:18 Acetaminophen 325 Mg Tab PO 650 mg Q4H PRN Administration Pain MILD(1-3)/Fever >100.5/LOCKE Dextrose 50 ml 08/20/21 07:30 Dextrose 50% In Water (25gm) 50 Ml Syringe IV Q30MIN PRN Hypoglycemia Protocol Famotidine 20 mg 08/19/21 22:00 08/23/21 09:12 Famotidine 20 Mg Tab PO 20 mg BID LATISHA Administration Heparin Sodium (Porcine) 5,000 unit 08/19/21 22:00 08/23/21 09:12 Heparin 5,000 Unit/1 Ml Vial SUB-Q 5,000 unit Q12HR LATISHA Administration Hydromorphone HCl 0.5 mg 08/19/21 21:50 08/21/21 15:45 Hydromorphone 0.5 Mg/0.5 Ml Inj IV 0.5 mg Q3H PRN Administration Pain , Severe (7-10) Piperacillin Sod/Tazobactam Sod 4.5 gm in 100 mls @ 200 mls/hr 08/20/21 19:00 08/23/21 02:57 Zosyn/Ns 4.5gm/100ml IV 200 mls/hr Q8H LATISHA Administration Protocol Insulin Human Isoph/Insulin Regular 15 unit 08/21/21 08:15 08/23/21 09:12 Insulin Nph/Regular 70/30 Inj SUB-Q 15 unit BIDDIAB LATISHA Administration Insulin Human Regular 0 units 08/20/21 08:00 08/23/21 09:12 Insulin Regular, Human 100 Units/1 Ml SUB-Q 3 units ACHS LATISHA Administration Protocol Lisinopril 20 mg 08/20/21 10:00 08/23/21 09:13 Lisinopril 20 Mg Tab PO 20 mg QDAY LATISHA Administration Metoclopramide HCl 10 mg 08/19/21 21:50 Metoclopramide 10 Mg/2 Ml Inj IV Q6H PRN Nausea And Vomiting Ondansetron HCl 4 mg 08/19/21 21:50 Ondansetron 4 Mg/2 Ml Inj IV Q8H PRN Nausea And Vomiting Oxycodone/Acetaminophen 1 tab 08/19/21 21:50 08/22/21 12:24 Oxycodone /Acetaminophen 5-325mg Tab PO 1 tab Q6H PRN Administration Pain, Moderate (4-6) Pravastatin Sodium 40 mg 08/20/21 22:00 08/22/21 22:02 Pravastatin 40 Mg Tab PO 40 mg QHS LATISHA Administration Sodium Chloride 10 ml 08/19/21 22:00 08/23/21 09:13 Sodium Chloride 0.9% 10 Ml Flush Syringe IV 10 ml BID LATISHA Administration Sodium Chloride 10 ml 08/19/21 21:50 Sodium Chloride 0.9% 10 Ml Flush Syringe IV PRN PRN LINE FLUSH Nutrition/Malnutrition Assess - Dietary Evaluation Nutrition/Malnutrition Findings: Nutrition Notes Start: 08/20/21 18:03 Freq: Status: Active Protocol: Document 08/20/21 18:03 JUDITH (Rec: 08/20/21 18:20 JUDITH [id number]) Nutrition Notes 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 Current Diet Consistent Carbohydrates Diet (from D 08/20). Labs/Tests 08/20: Na 135, Glu 190. Pertinent Medications 08/20: Nutritionally unremarkable. 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 No reports available on Pt's PO intake of meals at the time , will assess at F/U. Pt is on Room Air, O2 saturation @ 99%, according to Physical Assessment History notes. Pt presents Surgical Wound on Perianal Area, according to Physical Assessment History notes. Procedure on 08/20: Incision and drainage of perianal abscess, well tolerated, according to Operative Report notes. Percent of energy/protein needs met: Prescribed Consistent Carbohydrates Diet provides for energy/protein needs (2, 061 Kcal/91 g) during LOS. Burn Absent Trauma Absent GI Symptoms None Food Allergy No Skin Integrity/Comment Surgical Wound on Perianal Area. Minimum of two criteria No Fluid Accumulation N/A Reduced Director Voice Strength N/A (non-severe) Protein-Calorie Malnutrition N\A #1 Nutrition Diagnosis No nutrition diagnosis at this time Comments: Will assess Pt's PO intake of meals at F/U. Is patient on ventilator? No Is Patient Ambulatory and/or Out of Bed Yes REE-([facility]-ambulatory/OOB) [ 1799.795 [id number]] Kcal/Kg value to use for calculation 20 Approximate Energy Requirements Using 1805 kcal/Kg Calculation Used for Recommendations Kcal/kg Additional Notes Protein: 0.8-1 g/Kg AdjBW; 64- 80 g/day. Fluids: 1 ml/Kcal, or as per MD. Nutrition Intervention Change Diet Order: Continue Consistent Carbohydrates Diet. Follow-Up By: 08/27/21 Additional Comments Continue monitoring food tolerance, %PO intake of meals , and BM.
[2021-08-23] MEDS ORDERED: SODIUM FERRIC GLUCON/SUCRO 125 MG in SODIUM CHLORIDE 0.9% 100 ML IV ONE (12:00)
--- NOTE | 2021-08-23 18:27 | Event Note ---
Date: 08/23/21 Pt chart reviewed. Afebrile, VSS. 56 yo M s/p rectal examination under anesthesia and incision and drainage of complex gluteal/perirectal abscess, POD 3 buttock cx - beta hemolytic group b strept and ecoli - andrade sensitive Plan: 1. Continue abx - may dc on augmentin or bactrim x 14 days total if ok with ID 2. continue sitz baths TID and after every bowel movement 3. prn PO pain control 4. Pending manager social work/case management consult - may need [facility] for wound management. --Patient states he has no resources at home. He states his lights, water, and electricity has been turned off due to financial difficulties. He has no other friends or family members he can go to for help. He states he will not be able to do sitz baths at home. Ok to dc in am from surgery standpoint. Pt may follow up with Dr. Hernandez in office in 1wk
[2021-08-23] MEDS: oxyCODONE /ACETAMINOPHEN 5-325MG TAB PO PRN (22:14)
[2021-08-23] MEDS: PRAVASTATIN 40 MG TAB PO SCH (22:15)
[2021-08-24] MEDS: PIPERACIL/TAZOBACTA 4.5/NS 100 4.5 GM/100 ML VIAL IV SCH (03:05)
[2021-08-24] MEDS ORDERED: LISINOPRIL 20 MG TAB PO SCH (07:10)
[2021-08-24] MEDS: INSULIN REGULAR, HUMAN 100 UNITS/1 ML SUB-Q SCH ×2 (08:12→12:20)
[2021-08-24] MEDS ORDERED: amLODIPine 10 MG TAB PO SCH (10:00)
[2021-08-24] MEDS ORDERED: AMOXICILLIN/K CLAV 875/125MG TAB PO SCH (10:00)
[2021-08-24] MEDS ORDERED: LISINOPRIL 40 MG TAB PO SCH (10:00)
[2021-08-24] MEDS: FAMOTIDINE 20 MG TAB PO SCH (10:30)
[2021-08-24] MEDS: HEPARIN 5,000 UNIT/1 ML VIAL SUB-Q SCH (10:31)
[2021-08-24] MEDS: INSULIN NPH/REGULAR 70/30 INJ SUB-Q SCH (10:32)
[2021-08-24 10:33] VITALS: BP 149/71
--- NOTE | 2021-08-24 10:46 | Discharge Summary ---
Providers - Providers Date of Admission: 08/19/21 21:50 Date of discharge: 08/24/21 Attending physician: YAMILETH HANEY MD 08/19/21 15:54 Consult to Physician [CONS] Routine Comment: Consulting Provider: WILLIE HERNANDEZ Physician Instructions: Reason For Exam: Perianal abscess 08/20/21 07:30 Consult to Physician [CONS] Routine Comment: Consulting Provider: DIMITRIOS CARRILLO Physician Instructions: Reason For Exam: Antibiotic management 08/23/21 07:08 Consult to Case Management [CONS] Routine Services Needed at Discharge: Interactive Media Marketing Director Notified:: CM Comment:: Home without power or running water. Dispo concerns. Primary care physician: VANESSA MCCLOUD Hospitalization Reason for admission: Sepsis, perianal abscess with associated fistula Condition: Stable Pertinent studies: Reviewed. Procedures: I ED of perianal abscess with associated fistula. Hospital course: Patient is a 55-year-old male past medical history hypertension, xdo-ifxubru-jcbnweghn type 2 diabetes mellitus, obesity, and hyperlipidemia who presented with tenderness and edema of his perianal region that was found to be secondary to a perianal abscess with associated fistula. On presentation the patient was found to be septic,, and he was initiated on IV antibiotics (Zosyn). CT abdomen and pelvis revealed abscess with fistula. General surgery was consulted, and the patient underwent irrigation and debridement in the OR. Wound cultures were positive for E. coli and beta-hemolytic strep. The patient developed an ADRY with a creatinine up to 1.8 that is since resolved. The patient was found to have microcytic anemia and underwent 1 IV iron infusion after resolution of sepsis. Infectious disease was consulted for antibiotic management. Patient will be discharging on Augmentin 875/125 mg twice daily x14 days. Patient will also follow-up with Dr. Hernandez in clinic in approximately 1 week. The patient was counseled at length about the importance of glycemic control in order to decrease his likelihood of reoccurring abscesses. Patient expressed understanding. Patient is medically clear for discharge. Disposition: 01 HOME / SELF CARE / HOMELESS Final Discharge Diagnosis (Prints w/discharge instructions): Perianal abscess with associated fistula status post I&D, sepsis, ADRY, noninsulin-dependent type 2 diabetes mellitus, hypertension, hyperlipidemia, microcytic anemia, mild protein caloric malnutrition, obesity. Time spent for discharge: 45 min Core Measure Documentation - Palliative Care Palliative Care/ Comfort Measures: Not Applicable - Core Measures Any of the following diagnoses?: none Exam - Constitutional Vitals: Temp Pulse Resp BP Pulse Ox 98.0 F 75 17 149/71 98 08/23/21 15:52 08/23/21 15:52 08/23/21 23:14 08/24/21 10:30 08/24/21 08:14 General appearance: Present: no acute distress, well-nourished, obese - EENT Eyes: Present: PERRL, EOM intact ENT: hearing intact, clear oral mucosa, dentition normal - Neck Neck: Present: supple, normal ROM - Respiratory Respiratory effort: normal Respiratory: bilateral: CTA - Cardiovascular Rhythm: regular Heart Sounds: Present: S1 & S2 - Extremities Extremities: no ischemia, pulses intact, pulses symmetrical, No edema, normal temperature, normal color, Full ROM Peripheral Pulses: within normal limits - Abdominal General gastrointestinal: Present: soft, non-tender, non-distended, normal bowel sounds Male genitourinary: Present: deferred - Rectal Rectal Exam: other (Perianal wound with packing) - Integumentary Integumentary: Present: clear, warm, dry - Musculoskeletal Musculoskeletal: strength equal bilaterally - Psychiatric Psychiatric: appropriate mood/affect, intact judgment & insight, memory intact, cooperative - Neurologic Neurologic: CNII-XII intact, moves all extremities - Allied Health Allied health notes reviewed: nursing Plan Activity: no restrictions Diet: low salt, diabetic Additional Instructions: Patient is a 55-year-old male past medical history hypertension, pvd-mombcmm-fbsgdaezs type 2 diabetes mellitus, obesity, and hyperlipidemia who presented with tenderness and edema of his perianal region that was found to be secondary to a perianal abscess with associated fistula. On presentation the patient was found to be septic,, and he was initiated on IV antibiotics (Zosyn). CT abdomen and pelvis revealed abscess with fistula. General surgery was consulted, and the patient underwent irrigation and debridement in the OR. Wound cultures were positive for E. coli and beta- hemolytic strep. The patient developed an ADRY with a creatinine up to 1.8 that is since resolved. The patient was found to have microcytic anemia and underwent 1 IV iron infusion after resolution of sepsis. Infectious disease was consulted for antibiotic management. Patient will be discharging on Augmentin 875/125 mg twice daily x14 days. Patient will also follow-up with Dr. Hernandez in clinic in approximately 1 week. The patient was counseled at length about the importance of glycemic control in order to decrease his likelihood of reoccurring abscesses. Patient expressed understanding. Patient is medically clear for discharge. Care Plan Goals: Patient is medically cleared for discharge. Assessment: Patient is a 55-year-old male past medical history hypertension, ieh-fhmosyc-eotdzhidg type 2 diabetes mellitus, obesity, and hyperlipidemia who presented with tenderness and edema of his perianal region that was found to be secondary to a perianal abscess with associated fistula. On presentation the patient was found to be septic,, and he was initiated on IV antibiotics (Zosyn). CT abdomen and pelvis revealed abscess with fistula. General surgery was consulted, and the patient underwent irrigation and debridement in the OR. Wound cultures were positive for E. coli and beta-hemolytic strep. The patient developed an ADRY with a creatinine up to 1.8 that is since resolved. The patient was found to have microcytic anemia and underwent 1 IV iron infusion after resolution of sepsis. Infectious disease was consulted for antibiotic management. Patient will be discharging on Augmentin 875/125 mg twice daily x14 days. Patient will also follow-up with Dr. Hernandez in clinic in approximately 1 week. The patient was counseled at length about the importance of glycemic control in order to decrease his likelihood of reoccurring abscesses. Patient expressed understanding. Patient is medically clear for discharge. Follow up with: VANESSA MCCLOUD MD [Primary Care Provider] - 3-5 Days WILLIE HERNANDEZ MD [Staff Physician] - 7 Days Prescriptions: Pravastatin [Pravachol] 40 mg PO QHS #30 tablet amLODIPine 10 mg PO QDAY #30 tablet Amoxicillin/K Clav Tab [Augmentin 875MG TAB] 1 each PO Q12HR #28 tablet Janumet 50-1,000 mg 1,000 mg PO DAILY #30 tab metFORMIN 1,000 mg PO BID #60 tab oxyCODONE /ACETAMINOPHEN [Percocet 5/325 mg] 1 tab PO Q6H PRN #10 tablet PRN Reason: Pain, Moderate (4-6) lisinopriL [Zestril TAB] 40 mg PO QDAY #30 tablet
--- NOTE | 2021-08-24 13:57 | Progress Note ---
Assessment and Plan Cultures: Surgical cultures with group B strep, E. coli A/P: 56 yo M PMhx obesity, Dm2 now with: #Acute sepsis: with fevers and leukocytosis. Secondary to josef-anal abscess. #Josef-anal abscess with fistulization: unclear etiology. Given fistula - possible undiagnosed Crohn's? #DM2: tight glycemic control for best outcomes. Recs: -Can DC with Augmentin 875/125mg q12h for 7 days Thank you for the consult, we will sign off. Please call questions. Jonathan Gomez MD [facility] ([facility]) O: [phone] F: [phone] Subjective Date of service: 08/24/21 Interval history: Afebrile over the weekend, normal white count now. Cultures now negative. Objective - Exam Narrative Exam: Physical Exam: Constitutional: Alert, cooperative. No acute distress Head, Ears, Nose: Normocephalic, atraumatic. External ears, nose normal Eyes: Conjunctivae/corneas clear. No icterus. No ptosis. Neck: Supple, no meningeal signs Oral: dentition fair, no thrush Cardiovascular: S1, S2 normal. Respiratory: Good air entry, clear to auscultation bilaterally GI: Soft, non-tender; bowel sounds normal. No peritoneal signs. Musculoskeletal: No pedal edema, no cyanosis. Skin: No rash or abscess Hem/Lymphatic: No palpable cervical or supraclavicular nodes. Psych: Mood ok. Affect normal Neurological: Awake, alert, oriented. No gross abnormality - Constitutional Vitals: Vital Signs Temp Pulse Resp BP Pulse Ox 98.0 F 75 17 149/71 98 08/23/21 15:52 08/23/21 15:52 08/23/21 23:14 08/24/21 10:30 08/24/21 08:14 Temperature -Last 24 Hours Temperature 98.0 F - Labs CBC & Chem 7: 08/23/21 05:54 08/23/21 07:37 Labs: Abnormal lab results 08/23/21 08/24/21 08/24/21 Range/Units 15:50 07:49 11:52 POC Glucose 237 H 142 H 285 H (70-105) mg/dL
== END 2021-08-24 14:35 | disposition home or self-care (01) | DRG 854 ==
LOC: ED 22:27 → 3A 08-19 21:50
PROVIDERS: ADMIT Internal Medicine; ATTEND Student in an Organized Health Care Education/Training Program
PROC: 0D9P0ZX Drainage of Rectum, Open Approach, Diagnostic (ICD-10-PCS; principal; 2021-08-20)
DX: A41.89 Other specified sepsis (principal); E44.1 Mild protein-calorie malnutrition; N17.9 Acute kidney failure, unspecified; K61.2 Anorectal abscess; Z68.32 Body mass index [BMI] 32.0-32.9, adult; E11.9 Type 2 diabetes mellitus without complications; E78.00 Pure hypercholesterolemia, unspecified; E78.5 Hyperlipidemia, unspecified; D50.9 Iron deficiency anemia, unspecified; E66.9 Obesity, unspecified; Z71.3 Dietary counseling and surveillance; Z79.899 Other long term (current) drug therapy; Z88.5 Allergy status to narcotic agent; Z82.49 Family history of ischemic heart disease and other diseases of the circulatory system; Z79.84 Long term (current) use of oral hypoglycemic drugs
CPT/HCPCS: 36415; 72193; 80048; 80053; 82728; 82962; 83036; 83550; 85007; 85025; 85027; 87040; 87075; 87076; 87116; 87186; G0378; J1815; J3490; J7502; Q0177; Q9967; J1170; J1644; J1885; J1956; J2250; J2405; J2543; J2704; J2710; J2916; J3010; J7030